=== PATIENT | male | born 1965 | race African-American/Black ===

== ENCOUNTER 2020-08-22 21:23 | Inpatient (IN) | payer SELFPAY, OTHER ==
[~2020-08-22] VITALS: Ht 180.3 cm; Wt 117.5 kg
--- NOTE | 2020-08-22 21:40 | NUR ---
BIB C/O SOB X 1 WEEK WITH SWOLLEN TESTICLES AND BLE EDEMA PT TO BED 1, AAOX4, O2 88% RA, PLACED ON 2L NC. +HYPERTENSIVE, -DIZZINESS/N/V/D, GOWNED, PLACED ON MONITOR, PENDING ER PROVIDER BUZZ
--- NOTE | 2020-08-22 22:15 | NUR ---
COVID ANTIGEN SENT
[2020-08-22 22:27] LABS: BASOPHILS % (AUTO) 0.7 % (0.0-2.0); EOSINOPHILS % (AUTO) 2.2 % (0.0-6.0); HEMATOCRIT 51 % (39-51); HEMOGLOBIN 15.3 g/dL (13.5-17.5); LYMPHOCYTES # (AUTO) 0.8 /CMM (0.8-4.8); MEAN CORPUSCULAR HGB CONC 30 g/dl (31.0-36.0); MEAN CORPUSCULAR VOLUME 97 fL (80-96); MONOCYTES # (AUTO) 0.9 /CMM (0.1-1.30); MONOCYTES % (AUTO) 12.5 % (2.0-12.0); NEUTROPHILS # (AUTO) 5.4 /CMM (1.8-8.9); NEUTROPHILS % (AUTO) 73.6 % (43.0-81.0); PLATELET COUNT (AUTO) 156 /CMM (150-450); RED BLOOD CELL COUNT(AUTO) 5.21 MIL/uL (4.5-6.0); WHITE BLOOD COUNT (AUTO) 7.4 K/uL (4.3-11.0)
[2020-08-22 22:44] LABS: CALCIUM, SERUM 9.3 mg/dL (8.5-10.1); CARBON DIOXIDE 24 mmol/L (21-32); CHLORIDE 105 mmol/L (98-107); CREATININE 1.5 mg/dL (0.6-1.3); GLUCOSE 118 mg/dL (74-106); POTASSIUM 4.5 mmol/L (3.5-5.1); SODIUM SERUM 140 mmol/L (136-145); UREA NITROGEN, BLOOD 26 mg/dL (7-18)
[2020-08-22 23:10] LABS: ALBUMIN 2.5 g/dL (3.4-5.0); ALKALINE PHOSPHATASE 206 U/L (46-116); ASPARTATE AMINOTRANSFERASE 22 U/L (15-37); B-TYPE NATRIURETIC PEPTIDE 4949 PG/ML (0-125); BILIRUBIN,TOTAL 0.9 mg/dL (0.2-1.0); TOTAL PROTEIN, SERUM 8.3 g/dL (6.4-8.2)
[2020-08-22 23:29] LABS: ALANINE AMINOTRANSFERASE < 6 U/L (12-78)
[2020-08-22] MEDS ORDERED: PIPERACILLIN /TAZOBACTAM 3.375 G in IV D5W 50 ML IV ONE (23:30)
[2020-08-22] MEDS ORDERED: VANCOMYCIN 1 GM in IV D5W 250 ML IV ONE (23:30)
[2020-08-22] MEDS ORDERED: PIPERACILLIN /TAZOBACTAM 3.375 G VIAL IV ONE (23:40)
[2020-08-22] MEDS ORDERED: VANCOMYCIN 1 GM VIAL ONE (23:40)
--- NOTE | 2020-08-23 00:23 | NUR ---
DR. DENNISON PAGED PER ER ORDER.
[2020-08-23] MEDS ORDERED: FUROSEMIDE 40 MG/4 ML VIAL IV ONE (01:00)
[2020-08-23] MEDS ORDERED: ZOLPIDEM TARTRATE 5 MG TABLET PO PRN (06:30)
[2020-08-23] MEDS ORDERED: Z GUARD REMEDY 2 OZ OINT TP PRN (06:30)
[2020-08-23] MEDS ORDERED: MAG HYDROX/AL HYDROX/SIMETH 30 ML UDC PO PRN (06:30)
[2020-08-23] MEDS ORDERED: ONDANSETRON HCL/PF 4 MG/2 ML VIAL IVP PRN (06:30)
[2020-08-23] MEDS ORDERED: MAGNESIUM HYDROXIDE 30 ML UDC PO PRN (06:30)
[2020-08-23] MEDS ORDERED: FUROSEMIDE 40 MG/4 ML VIAL ONE (07:00)
[2020-08-23] MEDS: FUROSEMIDE 40 MG/4 ML VIAL IV SCH ×3 (07:04→17:49)
--- NOTE | 2020-08-23 07:34 | NUR ---
REPORT GIVEN TO MONICA FOR DREW
--- NOTE | 2020-08-23 07:35 | NUR ---
REPORT RECEIVED FROM DARRION GARCIA FOR DREW. PATIENT IN BED AWAKE, AAO x 4. HOOKED TO MONITOR. NOTED ELEVATED BP. WILL CONTINUE TO MONITOR ACCORDINGLY
[2020-08-23] MEDS ORDERED: ENOXAPARIN SODIUM 40 MG/0.4 ML DISP.SYRIN SQ SCH (07:38)
[2020-08-23] MEDS ORDERED: CEFEPIME 2 GM in IV D5W 100 ML IV SCH (08:00)
--- NOTE | 2020-08-23 08:27 | NUR ---
TECHNICAL SPECIALIST CYTOGENETICS AT BEDSIDE FOR ECHOCARDIOGRAM
--- NOTE | 2020-08-23 08:31 | NUR ---
IN HOME TUTOR AT BEDSIDE FOR TROPONIN BLOOD DRAW
--- NOTE | 2020-08-23 08:54 | NUR ---
PATIENT REFUSED BLOOD DRAW.
--- NOTE | 2020-08-23 09:00 | NUR ---
LASIX 40MG/4ML IVP GIVEN BY PAD MAKING MACHINE OPERATOR NURSE
--- NOTE | 2020-08-23 09:01 | NUR ---
REACH TRUCK OPERATOR AT BEDSIDE FOR GENNARO
[2020-08-23] MEDS ORDERED: LISI-603 PO (09:08)
[2020-08-23] MEDS ORDERED: METF-440 PO (09:08)
--- NOTE | 2020-08-23 09:26 | NUR ---
BREAKFAST TRAY PROVIDED. TOLERATED PO WELL
[2020-08-23] MEDS ORDERED: DEXTROSE 50%-WATER 50 ML DISP.SYRIN IV PRN (11:30)
[2020-08-23] MEDS ORDERED: VANCOMYCIN 1 GM in IV D5W 250 ML IV SCH (12:00)
[2020-08-23] MEDS ORDERED: HYDROCODONE/APAP 5/325MG TABLET ONE (13:44)
[2020-08-23] MEDS: HYDROCODONE/APAP 5/325MG TABLET PO PRN (13:46)
--- NOTE | 2020-08-23 14:02 | NUR ---
LUNCH TRAY PROVIDED. TOLERATED PO WELL.
--- NOTE | 2020-08-23 15:19 | NUR ---
COVID 19 PCR SWAB DONE AND SENT TO LAB.
[2020-08-23] MEDS: AMLODIPINE BESYLATE 5 MG TABLET PO SCH (15:52)
--- NOTE | 2020-08-23 17:03 | NUR ---
DINNER TRAY PROVIDED. TOLERATING PO WELL.
[2020-08-23] MEDS: BLOOD SUGAR DIAGNOSTIC 1 EACH STRIP IN SCH ×2 (18:19→22:00)
--- NOTE | 2020-08-23 19:42 | NUR ---
REPORT GIVEN TO AURORA GARCIA FOR DREW
[2020-08-23] MEDS ORDERED: ENOXAPARIN SODIUM 100 MG/ML DISP.SYRIN SQ SCH (21:00)
[2020-08-23] MEDS ORDERED: ENOXAPARIN SODIUM 100 MG/ML DISP.SYRIN SQ ONE (21:09)
[2020-08-24] VITALS (26 sets, daily range): BP systolic 104–163; BP diastolic 51–132
--- NOTE | 2020-08-24 03:19 | NUR ---
PATIENT IS SLEEPING. EASILY AROUSABLE. CALL LIGHT WITHIN REACH. PATIENT'S BED IS AT THE LOWEST POSITION. SIDE RAILS ARE UP FOR SAFETY. PATIENT IS GIVEN WARM BLANKET FOR COMFORT. PATIENT IS BREATHING EVENLY AND UNLABORED ON ROOM N/C. PATIENT IS CONNECTED TO THE MONITOR.
[2020-08-24 05:10] LABS: BASOPHILS % (AUTO) 0.6 % (0.0-2.0); EOSINOPHILS % (AUTO) 2.7 % (0.0-6.0); HEMATOCRIT 46 % (39-51); HEMOGLOBIN 14.3 g/dL (13.5-17.5); LYMPHOCYTES # (AUTO) 0.6 /CMM (0.8-4.8); LYMPHOCYTES % (AUTO) 9.1 % (20.0-44.0); MEAN CORPUSCULAR HGB CONC 31 g/dl (31.0-36.0); MEAN CORPUSCULAR VOLUME 95 fL (80-96); MONOCYTES # (AUTO) 0.8 /CMM (0.1-1.30); MONOCYTES % (AUTO) 12.2 % (2.0-12.0); NEUTROPHILS # (AUTO) 4.7 /CMM (1.8-8.9); NEUTROPHILS % (AUTO) 75.4 % (43.0-81.0); PLATELET COUNT (AUTO) 180 /CMM (150-450); RED BLOOD CELL COUNT(AUTO) 4.78 MIL/uL (4.5-6.0); WHITE BLOOD COUNT (AUTO) 6.2 K/uL (4.3-11.0)
--- NOTE | 2020-08-24 05:19 | NUR ---
RT AT BEDSIDE FOR EKG
[2020-08-24 05:38] LABS: CALCIUM, SERUM 9.2 mg/dL (8.5-10.1); CREATININE 1.9 mg/dL (0.6-1.3); MAGNESIUM 2.5 mg/dL (1.8-2.4); PHOSPHORUS 5.5 mg/dL (2.5-4.9); POTASSIUM 5.3 mmol/L (3.5-5.1)
[2020-08-24] MEDS ORDERED: HYDROCODONE/APAP 5/325MG TABLET ONE (05:58)
[2020-08-24] MEDS ORDERED: ONDANSETRON HCL/PF 4 MG/2 ML VIAL ONE (05:58)
[2020-08-24] MEDS: HYDROCODONE/APAP 5/325MG TABLET PO PRN (06:06)
--- NOTE | 2020-08-24 06:55 | NUR ---
NOTED O2 SAT 80% 6L NC. PT PLACED ON 8L SIMPLE MASK, TOLERATING WELL. O2 SAT NOW 97%
[2020-08-24] MEDS ORDERED: FUROSEMIDE 40 MG/4 ML VIAL ONE (07:15)
--- NOTE | 2020-08-24 07:20 | NUR ---
PER ER MD, GIVE 40MG LASIX IVP NOW.
[2020-08-24] MEDS ORDERED: FUROSEMIDE 40 MG/4 ML VIAL IV SCH (07:30)
--- NOTE | 2020-08-24 07:47 | NUR ---
REPORT GIVEN TO GABY JUAREZ FOR DREW.
[2020-08-24] MEDS: AMLODIPINE BESYLATE 5 MG TABLET PO SCH (09:00)
--- NOTE | 2020-08-24 09:36 | NUR ---
PATIENT UNRESPONSIVE TO STERNAL RUB, PINPOINT SIZED PUPIL. PULSE AT 36 BPM. GABY WILCOX POWER PLANT OPERATIONS MANAGER VERBALLY ORDERED ATROPINE IVP 1MG/10ML AMPULE. CARRIED OUT.
--- NOTE | 2020-08-24 09:40 | NUR ---
PATIENT INTUBATED. NOT ABLE TO TAKE PO MEDICATION
--- NOTE | 2020-08-24 09:42 | NUR ---
[facility] CALLED EMS DRIVER PAGED.
--- NOTE | 2020-08-24 09:43 | NUR ---
DR HUMPHRIES, RT, RN AT BEDSIDE FOR INTUBATION.
[2020-08-24] MEDS ORDERED: PROPOFOL 100 ML ONE ×2 (09:46→12:01)
[2020-08-24] MEDS: FUROSEMIDE 40 MG/4 ML VIAL IV SCH ×2 (10:00→16:08)
--- NOTE | 2020-08-24 10:09 | NUR ---
ESMER SERVICE OFFICER AT BEDSIDE
[2020-08-24 10:23] LABS: ABG BASE EXCESS -4.6 mmol/L; ABG OXYGEN SATURATION 93.3 % (92.0-98.5); ABG PCO2 89.4 mmHg (35.0-45.0); ABG PH 7.104 (7.350-7.450); ABG PO2 71.8 mmHg (75.0-100.0); AaDO2 184.1 mmHg; COHb 1.5 % (0.5-1.5); MetHb 0.4 % (0.0-1.5); O2Hb 91.5 % (94.0-97.0); SITE, ABG Right Radial; VENT MODE, BG AC 16 600 50% +5
[2020-08-24] MEDS: ASPIRIN 325 MG TABLET PO SCH (10:30)
[2020-08-24] MEDS ORDERED: SODIUM POLYSTYRENE SULFONATE 15 G/60 ML BOTTLE PO ONE (10:30)
--- NOTE | 2020-08-24 10:38 | NUR ---
RT AT BEDSIDE. NEW SETTINGS FOR VENT: 60% 650 29
[2020-08-24] MEDS: BLOOD SUGAR DIAGNOSTIC 1 EACH STRIP IN SCH ×4 (11:14→22:53)
[2020-08-24] MEDS ORDERED: VANCOMYCIN 1.25 GM in IV D5W 250 ML IV SCH (12:00)
[2020-08-24] MEDS: ENOXAPARIN SODIUM 100 MG/ML DISP.SYRIN SQ SCH (12:39)
--- NOTE | 2020-08-24 13:00 | NUR ---
received pt from ER, s/p respiratory failure, sedated on Diprivan at 40mcg, SR, SB, intubated, sat well, R hand and BL foot non pitting edema noted, f/c in place, v/s table, no pain, pt cleaned, changed and repositioned.
[2020-08-24 13:12] LABS: ABG BASE EXCESS 1.5 mmol/L; ABG OXYGEN SATURATION 97.1 % (92.0-98.5); ABG PCO2 45.7 mmHg (35.0-45.0); ABG PH 7.389 (7.350-7.450); ABG PO2 85.2 mmHg (75.0-100.0); AaDO2 292.3 mmHg; COHb 0.8 % (0.5-1.5); MetHb 0.2 % (0.0-1.5); O2Hb 96.1 % (94.0-97.0); SITE, ABG Right Radial; VENT MODE, BG AC 24 650 60% +0
--- NOTE | 2020-08-24 13:21 | NUR ---
REPORT GIVEN TO YOSEF GARCIA OF ICU
[2020-08-24] MEDS: IPRATROPIUM NEB FS 0.5 MG/2.5 ML AMPUL.NEB NEB SCH ×3 (13:30→19:42)
--- NOTE | 2020-08-24 13:37 | NUR ---
TRANSFERRED TO ICU WITH RT AND OIL PIT ATTENDANT VIA ACLS PROTOCOL
[2020-08-24] MEDS ORDERED: PROPOFOL 200 MG/20 ML VIAL IV ONE (14:32)
[2020-08-24] MEDS: ZOSYN IVPB 3.375 G in IV D5W 50ml IV SCH ×2 (15:31→17:22)
[2020-08-24] MEDS: PROPOFOL 100 ML IV PRN ×3 (16:23→22:30)
--- NOTE | 2020-08-24 16:28 | NUR ---
pt is resting in the bed, sedated on Diprivan at 40mcg, sat well on 60% fi02, v/s stable, no pain, pt cleaned, changed and repositioned.
[2020-08-24] MEDS ORDERED: ATROPINE SULFATE 1 MG/10 ML DISP.SYRIN IV ONE (19:09)
[2020-08-24] MEDS ORDERED: EPINEPHRINE (1:10,000) SYRINGE 1 MG/10 ML DISP.SYRIN IVP ONE (19:09)
--- NOTE | 2020-08-24 19:51 | NUR ---
RN/ICU-RECEIVED PT. FROM [facility] RADHA RODRÍGUEZ. ON THE VENT PER ETT, ON AC MODE, FIO2- 50%. SATS.-100%. EKG SB HR-57/MIN. SEDATED ON DIPRIVAN DRIP AT 40 MCG/ KG/ MIN. NO ROSARIO . W/ DOMINIQUE. SOFT WRIST RESTRAINTS ON PER PROTOCOL.AFEBRILE. PT. IS A FULL CODE.
--- NOTE | 2020-08-24 22:29 | NUR ---
RN/ICU-ACCUCHECK DONE 57MG/DL. WILL RECHECK
[2020-08-25] VITALS (40 sets, daily range): BP systolic 119–222; BP diastolic 58–127
[2020-08-25] MEDS: ZOSYN IVPB 3.375 G in IV D5W 50ml IV SCH ×4 (00:39→17:33)
[2020-08-25] MEDS: IPRATROPIUM NEB FS 0.5 MG/2.5 ML AMPUL.NEB NEB SCH ×4 (01:58→19:56)
[2020-08-25] MEDS: PROPOFOL 100 ML IV PRN (02:16)
[2020-08-25] MEDS: HYDROCODONE/APAP 5/325MG TABLET PO PRN (03:35)
[2020-08-25 06:00] LABS: BASOPHILS % (AUTO) 0.5 % (0.0-2.0); HEMATOCRIT 43 % (39-51); HEMOGLOBIN 13.5 g/dL (13.5-17.5); LYMPHOCYTES # (AUTO) 0.7 /CMM (0.8-4.8); LYMPHOCYTES % (AUTO) 11.1 % (20.0-44.0); MEAN CORPUSCULAR HGB CONC 32 g/dl (31.0-36.0); MEAN CORPUSCULAR VOLUME 92 fL (80-96); MONOCYTES # (AUTO) 0.9 /CMM (0.1-1.30); MONOCYTES % (AUTO) 13.8 % (2.0-12.0); NEUTROPHILS # (AUTO) 4.5 /CMM (1.8-8.9); NEUTROPHILS % (AUTO) 72.6 % (43.0-81.0); PLATELET COUNT (AUTO) 175 /CMM (150-450); RED BLOOD CELL COUNT(AUTO) 4.62 MIL/uL (4.5-6.0); WHITE BLOOD COUNT (AUTO) 6.2 K/uL (4.3-11.0)
[2020-08-25 06:10] LABS: CALCIUM, SERUM 8.5 mg/dL (8.5-10.1); CREATININE 2.5 mg/dL (0.6-1.3); MAGNESIUM 2.3 mg/dL (1.8-2.4); PHOSPHORUS 3.3 mg/dL (2.5-4.9); POTASSIUM 4.8 mmol/L (3.5-5.1)
[2020-08-25] MEDS: BLOOD SUGAR DIAGNOSTIC 1 EACH STRIP IN SCH ×4 (07:30→22:01)
--- NOTE | 2020-08-25 07:30 | NUR ---
RN NOTES PATIENT REMAINE INTUBATED. NO ACUTE RESPIRATORY DISTRESS. AFEBRILE. CONTINUE ON SEDATION TIRATED ORDERED. SB ON TELE MONITOR. IV SITE INTACT AND PATENT IV ATB TOLERATED WELL. ACCUCHECK ORDERED. KEPT PT CLEAN AND DRY. ENDORSED CONTINUITY OF CARE TO AM NURSE.
[2020-08-25] MEDS ORDERED: DC PROPOFOL WHEN EXTUBATED XX PRN (08:00)
--- NOTE | 2020-08-25 08:00 | NUR ---
received pt from night shirt, sedated on diprivan at 40mcg, SB, intubated, sat well, NG clamped, f/c ok output, v/s stable, no pain, pt turned and repositioned, pt is on SIMV mode now tolerating well.
[2020-08-25] MEDS: ASPIRIN 325 MG TABLET PO SCH (08:53)
[2020-08-25] MEDS: AMLODIPINE BESYLATE 5 MG TABLET PO SCH (08:53)
[2020-08-25] MEDS: FUROSEMIDE 40 MG/4 ML VIAL IV SCH ×2 (08:53→17:31)
[2020-08-25] MEDS: ENOXAPARIN SODIUM 100 MG/ML DISP.SYRIN SQ SCH (08:54)
--- NOTE | 2020-08-25 09:28 | NUR ---
pt is successfully extubated, alert, follows commands, sat well, v/s stable, no pain.
[2020-08-25] MEDS: VANCOMYCIN 1.25 GM in IV D5W 250 ML IV SCH (10:19)
[2020-08-25 12:42] LABS: ABG BASE EXCESS 1.4 mmol/L; ABG OXYGEN SATURATION 98.1 % (92.0-98.5); ABG PCO2 40.2 mmHg (35.0-45.0); ABG PH 7.425 (7.350-7.450); ABG PO2 101.1 mmHg (75.0-100.0); AaDO2 137.9 mmHg; COHb 1.5 % (0.5-1.5); MetHb 0.3 % (0.0-1.5); O2Hb 96.3 % (94.0-97.0); PEEP,BG 5 cm H2O; SITE, ABG Right Radial; VT, ABG 650 mL
--- NOTE | 2020-08-25 16:58 | NUR ---
pt is resting in the bed, alert, confused at times, SB, on 4L 02 sat OK, v/s stable, no pain, pt cleaned and changed.
--- NOTE | 2020-08-25 20:00 | NUR ---
Received patient awake alert and oriented x2.Disoriented to time.Reoriented. Respiration even and unlabored. With O2 4L NC SPO2 97%.Encouraged cough and deep breathing exercises.SR per tele monitoring.Tolerating clear liquid.FC to gravity drainage.Independent with bed mobility.NS infusing at TKO via MICHAEL ML and site intact.Denies pain.Safety precaution maintained.Bed in lowest position, locked,side rails up and bed alarm on.Call light at bedside.Continue monitoring.
[2020-08-26] VITALS (21 sets, daily range): BP systolic 122–170; BP diastolic 62–89
[2020-08-26] MEDS: ZOSYN IVPB 3.375 G in IV D5W 50ml IV SCH ×5 (00:14→23:29)
[2020-08-26] MEDS: IPRATROPIUM NEB FS 0.5 MG/2.5 ML AMPUL.NEB NEB SCH ×4 (01:44→19:29)
[2020-08-26] MEDS: HYDROCODONE/APAP 5/325MG TABLET PO PRN ×4 (02:11→23:53)
--- NOTE | 2020-08-26 02:40 | NUR ---
Patient verbalized I have pain in my testicle noted scrotal swelling.PRN pain medicine administered with relief.
[2020-08-26] MEDS: VANCOMYCIN 1.25 GM in IV D5W 250 ML IV SCH (03:10)
[2020-08-26 05:13] LABS: BASOPHILS % (AUTO) 0.6 % (0.0-2.0); EOSINOPHILS % (AUTO) 2.1 % (0.0-6.0); HEMATOCRIT 42 % (39-51); HEMOGLOBIN 13.4 g/dL (13.5-17.5); LYMPHOCYTES # (AUTO) 0.8 /CMM (0.8-4.8); LYMPHOCYTES % (AUTO) 11.7 % (20.0-44.0); MEAN CORPUSCULAR HGB CONC 32 g/dl (31.0-36.0); MEAN CORPUSCULAR VOLUME 93 fL (80-96); MONOCYTES # (AUTO) 1.1 /CMM (0.1-1.30); MONOCYTES % (AUTO) 15.6 % (2.0-12.0); NEUTROPHILS # (AUTO) 4.8 /CMM (1.8-8.9); PLATELET COUNT (AUTO) 182 /CMM (150-450); RED BLOOD CELL COUNT(AUTO) 4.56 MIL/uL (4.5-6.0); WHITE BLOOD COUNT (AUTO) 6.8 K/uL (4.3-11.0)
[2020-08-26 05:24] LABS: CALCIUM, SERUM 8.3 mg/dL (8.5-10.1); CREATININE 2.8 mg/dL (0.6-1.3); MAGNESIUM 2.3 mg/dL (1.8-2.4); PHOSPHORUS 5.2 mg/dL (2.5-4.9); POTASSIUM 4.4 mmol/L (3.5-5.1)
[2020-08-26 06:38] LABS: BAND % (MANUAL) 1 % (0.0-5.0); EOSINOPHILS % (MANUAL) 3 % (0-4); LYMPHOCYTES % (MANUAL) 15 % (16-48); MONOCYTES % (MANUAL) 16 % (0-11.0); NEUTROPHILS % (MANUAL) 65 (42-76)
--- NOTE | 2020-08-26 07:30 | NUR ---
Patient resting in no acute distress.VSS remains stable.Bed bath rendered and complete linens changed.Due medications administered.All needs met.Report given to day shift RN for continuity of care.
[2020-08-26] MEDS: BLOOD SUGAR DIAGNOSTIC 1 EACH STRIP IN SCH ×4 (07:33→22:12)
[2020-08-26] MEDS: FUROSEMIDE 40 MG/4 ML VIAL IV SCH ×2 (08:43→18:22)
[2020-08-26] MEDS: ENOXAPARIN SODIUM 100 MG/ML DISP.SYRIN SQ SCH (08:43)
[2020-08-26] MEDS: AMLODIPINE BESYLATE 5 MG TABLET PO SCH (08:43)
[2020-08-26] MEDS: ASPIRIN 325 MG TABLET PO SCH (08:43)
[2020-08-26] MEDS: ACETAMINOPHEN 325 MG TABLET PO PRN (12:05)
[2020-08-26] MEDS: hydrALAZINE HCL 10 MG TABLET PO SCH ×2 (12:05→21:16)
--- NOTE | 2020-08-26 13:22 | NUR ---
RN NOTE Received patient in am, A/Ox2/ On 4LPM of O2 via NC, tolerated, satting 94-96%. Salmeron cath intact, monitored strictly for I&O, on Lasix. Still noted with generalized edema. MICHAEL midline intact. S/E by Dr. Medina, with order to advance diet to [place] diabetic diet and may transfer to Tele. Made cardio MD aware with episode of HR down to 39 and patient had [place] in am, will continue to monitor. Made nurse sup aware re: the transfer order. Patient aware for the POC. Awaiting Tele bed. Tolerated diet at lunch time.
--- NOTE | 2020-08-26 15:49 | NUR ---
RN NOTE Report given to Yang BACA. Placed on 2LPm of O2 via NC, sat 98%. A/Ox3, aware for the POC. Kept clean, warm and dry. Needs attended. VSS. Transferred via bed using ACLS protocol.
--- NOTE | 2020-08-26 15:56 | NUR ---
[facility] SPECIALIST NOTES RECEIVED PT FROM METER TECHNICIAN LILLIE VIA BED, PT IS AWAKE, ALERT AND ORIENTED, NO COMPLAINT OF PAIN, RESPIRATIONS NORMAL, ON O2 AT 2LPM VIA NASAL CANULA, WITH O2 SAT OF 98%, ROOM SET UP ORIENTATION PROVIDED TO PT, VERBALIZED UNDERSTANDING, VS STABLE, PT WATCHING TV.
--- NOTE | 2020-08-26 19:45 | NUR ---
FARM EQUIPMENT ENGINEER NOTES RECEIVED ON BED A/O X2,BREATHING REGULAR,NOT IN ANY FORM DISTRESS,O2 IN USED AT 4L/NC WITH HUMIDIFIER,SB-42 ON TELE MONITOR.ARCHULETA CATH IN PLACE DRAINING YELLOWISH OUTPUT.DVT PUMP IN USED BOTH LEGS FOR PROPHYLAXIS AND ON LOVENOX SQ.CALL LIGHT IN REACH,NEEDS ANTICIPATED.
--- NOTE | 2020-08-26 22:30 | NUR ---
FLATBED TRUCK DRIVER NOTES ACCU-CHECK BLOOD SUGAR CHECK 114,NO INSULIN COVERAGE.
[2020-08-27] VITALS: BP 178/83
--- NOTE | 2020-08-27 01:00 | NUR ---
RICE DRIER OPERATOR NOTES FAIRLY RESTED AT NIGHT,NO EPISODE OF SOB NOTED.ARCHULETA IN PLACE DRAINS WELL,EMPTIED 1750ML URINE OUTPUT.IN NO ACUTE DISTRESSWILL ENDORSE TO DAY NURSE FOR DREW.
[2020-08-27] MEDS: hydrALAZINE HCL 25 MG TABLET PO PRN (01:12)
[2020-08-27 01:23] VITALS: BP 178/83
[2020-08-27] MEDS: IPRATROPIUM NEB FS 0.5 MG/2.5 ML AMPUL.NEB NEB SCH ×4 (01:38→19:34)
[2020-08-27 04:00] VITALS: BP 144/74
[2020-08-27] MEDS: hydrALAZINE HCL 10 MG TABLET PO SCH ×3 (05:18→21:10)
[2020-08-27] MEDS: ZOSYN IVPB 3.375 G in IV D5W 50ml IV SCH ×4 (05:18→23:37)
[2020-08-27] MEDS: BLOOD SUGAR DIAGNOSTIC 1 EACH STRIP IN SCH ×4 (05:20→22:31)
[2020-08-27 06:08] LABS: BASOPHILS % (AUTO) 0.8 % (0.0-2.0); EOSINOPHILS % (AUTO) 3.5 % (0.0-6.0); HEMATOCRIT 43 % (39-51); HEMOGLOBIN 13.5 g/dL (13.5-17.5); LYMPHOCYTES # (AUTO) 0.7 /CMM (0.8-4.8); LYMPHOCYTES % (AUTO) 11.5 % (20.0-44.0); MEAN CORPUSCULAR HGB CONC 31 g/dl (31.0-36.0); MEAN CORPUSCULAR VOLUME 94 fL (80-96); MONOCYTES # (AUTO) 0.9 /CMM (0.1-1.30); MONOCYTES % (AUTO) 15.2 % (2.0-12.0); NEUTROPHILS # (AUTO) 4.2 /CMM (1.8-8.9); PLATELET COUNT (AUTO) 165 /CMM (150-450); RED BLOOD CELL COUNT(AUTO) 4.59 MIL/uL (4.5-6.0)
[2020-08-27 06:16] LABS: CALCIUM, SERUM 8.3 mg/dL (8.5-10.1); CREATININE 2.9 mg/dL (0.6-1.3); MAGNESIUM 2.4 mg/dL (1.8-2.4); POTASSIUM 5.1 mmol/L (3.5-5.1)
[2020-08-27 08:00] VITALS: BP 141/82
--- NOTE | 2020-08-27 08:00 | NUR ---
RN Opening note Received patient in bed, AO x 2-3 able to responds all stimuli, Pt does no appears pain or distress. Skin is warm to touch keep clean/dry intact IV site, respiratory even and unlabored with oxygen at 4LPM via n/c. Kept locked bed with elevated HOB for aspiration precaution and ensure airway and lowest bed foe safety. Call light within reach, will continue to monitor.
[2020-08-27 08:47] LABS: EOSINOPHILS % (MANUAL) 2 % (0-4); LYMPHOCYTES % (MANUAL) 9 % (16-48); MONOCYTES % (MANUAL) 16 % (0-11.0); NEUTROPHILS % (MANUAL) 73 (42-76)
[2020-08-27] MEDS: HYDROCODONE/APAP 5/325MG TABLET PO PRN ×2 (09:44→18:27)
[2020-08-27] MEDS: AMLODIPINE BESYLATE 5 MG TABLET PO SCH (09:46)
[2020-08-27] MEDS: ENOXAPARIN SODIUM 100 MG/ML DISP.SYRIN SQ SCH (09:47)
[2020-08-27] MEDS: FUROSEMIDE 40 MG/4 ML VIAL IV SCH ×2 (09:47→17:06)
[2020-08-27] MEDS: ASPIRIN EC 81 MG TABLET.DR PO SCH (09:47)
[2020-08-27] MEDS ORDERED: BUMETANIDE INJ 4 MG in IV D5W 24 ML IV ONE (10:00)
--- NOTE | 2020-08-27 14:24 | NUR ---
Called pharmacy x 3 regarding Bumex at 9 am did not received yet.
[2020-08-27 16:00] VITALS: BP 152/64
--- NOTE | 2020-08-27 18:48 | NUR ---
RN Closing note Patient in bed finished meal, does no appears pain or discomfort. Respiratory even and unlabored withoxygen at 4Ls via n/c O2sat 97%. Skin is warm to touch keep clean/dry, intact IV site. Kept locked bed with elevated HOB for ensure airway and aspiration precaution and lowest bed for safety. Call light within reach will endorse night warehouse selector.
--- NOTE | 2020-08-27 19:36 | NUR ---
RN OPENING NOTES PATIENT RECEIVED RESTING IN BED A/O X 3. ON 4L OF O2 WITH BREATHING EVEN AND UNLABORED, NO SOB NOTED. NO SIGNS OF ACUTE DISTRESS. NO COMPLAINTS OF PAIN OR DISCOMFORT AT THE MOMENT. ARCHULETA NOTED AND IN PLACE. MICHAEL MIDLINE AND IV LOCATED ON HAND PATENT AND INTACT. SAFETY PRECAUTIONS IN PLACE WITH BED IN LOWEST POSITION, CALL LIGHT WITHIN REACH, BREAKS ON, SIDE RAILS UP.
[2020-08-27 20:00] VITALS: BP 192/82
[2020-08-28] VITALS: BP 173/86
[2020-08-28] MEDS: IPRATROPIUM NEB FS 0.5 MG/2.5 ML AMPUL.NEB NEB SCH ×4 (01:42→19:32)
[2020-08-28] MEDS: hydrALAZINE HCL 25 MG TABLET PO PRN (02:03)
--- NOTE | 2020-08-28 03:14 | NUR ---
PATIENT BLOOD PRESSURE 173/86 HR 58. NO COMPLAINTS OF DIZZINESS. NO SIGNS OF ACUTE DISTRESS. PRN HYDRALAZINE 25M PRN ADMINISTERED.
[2020-08-28 04:00] VITALS: BP 167/84
[2020-08-28] MEDS: hydrALAZINE HCL 10 MG TABLET PO SCH ×3 (05:25→21:00)
[2020-08-28] MEDS: ZOSYN IVPB 3.375 G in IV D5W 50ml IV SCH ×4 (05:25→23:10)
[2020-08-28 06:46] LABS: CALCIUM, SERUM 8.4 mg/dL (8.5-10.1); CREATININE 3.5 mg/dL (0.6-1.3); POTASSIUM 4.8 mmol/L (3.5-5.1)
[2020-08-28] MEDS: BLOOD SUGAR DIAGNOSTIC 1 EACH STRIP IN SCH ×4 (07:27→21:21)
--- NOTE | 2020-08-28 07:35 | NUR ---
CATTLE ALLEY WORKER OPENING NOTE PATIENT IN BED RESTING COMFORTABLY. PATIENT IS IN NO ACUTE DISTRESS. NO SOB NOTED. PATIENT BREATHING IS EVEN AND UNLABORED. NO COMPLAINT OF PAIN OR DISCOMFORT AT THIS TIME. PATIENT IS ON VALVE ASSEMBLER READING SB 55. PATIENT BED ALARM IS ON. SAFETY PRECAUTIONS ARE IN PLACE. PATIENT BED IS LOCKED AND IN LOWEST POSITION. CALL LIGHT WITHIN REACH. WILL CONTINUE TO MONITOR.
--- NOTE | 2020-08-28 07:44 | NUR ---
RN OPENING NOTES PATIENT RESTING IN BED A/O X 3. ON 3L OF O2 WITH BREATHING EVEN AND UNLABORED, NO SOB NOTED. NO SIGNS OF ACUTE DISTRESS. NO COMPLAINTS OF PAIN OR DISCOMFORT AT THE MOMENT. ARCHULETA NOTED AND IN PLACE. MICHAEL MIDLINE AND IV LOCATED ON HAND PATENT AND INTACT. SAFETY PRECAUTIONS IN PLACE WITH BED IN LOWEST POSITION, CALL LIGHT WITHIN REACH, BREAKS ON, SIDE RAILS UP. ALL NEEDS ATTENDED TO THROUGHOUT THE NIGHT. PATIENT KEPT CLEAN AND DRY. WILL ENDORSE TO ONCOMING SHIFT ABOUT DREW.
[2020-08-28] MEDS: HYDROCODONE/APAP 5/325MG TABLET PO PRN ×3 (07:58→22:32)
[2020-08-28 08:00] VITALS: BP 157/97
[2020-08-28] MEDS: AMLODIPINE BESYLATE 5 MG TABLET PO SCH (08:34)
[2020-08-28] MEDS: ASPIRIN EC 81 MG TABLET.DR PO SCH (08:35)
[2020-08-28] MEDS: FUROSEMIDE 40 MG/4 ML VIAL IV SCH ×2 (08:35→16:22)
[2020-08-28] MEDS: ENOXAPARIN SODIUM 100 MG/ML DISP.SYRIN SQ SCH (08:36)
[2020-08-28 12:00] VITALS: BP 157/95
[2020-08-28 16:00] VITALS: BP 150/68
[2020-08-28] MEDS: METOLAZONE 2.5 MG TABLET PO SCH (18:14)
[2020-08-28] MEDS ORDERED: BUMETANIDE INJ 4 MG in IV D5W 24 ML IV ONE (18:30)
--- NOTE | 2020-08-28 18:55 | NUR ---
DISPLAY MANAGER CLOSING NOTES PATIENT IS IN BED RESTING COMFORTABLY. PATIENT IS IN NO ACUTE DISTRESS. PATIENT IS ON INFERTILITY MEDICAL ASSISTANT READING SR PAC 62. PATIENT IS ON NC ON 3L. PATIENT KEPT CLEAN DRY, AND COMFORTABLE THROUGHOUT THE SHIFT. NO FACIAL GRIMACING OR SIGNS OF PAIN PRESENT. BED ALARM IS ON. CALL LIGHT WITHIN REACH. BED IS IN THE LOWEST POSITION. ENDORSE TO OUTSIDE SALES REPRESENTATIVE NURSE FOR DREW.
[2020-08-28 19:50] VITALS: BP 128/70
[2020-08-28] MEDS ORDERED: ZOLPIDEM TARTRATE 5 MG TABLET PO ONE (21:00)
--- NOTE | 2020-08-28 21:00 | NUR ---
MS TELE OPENING NOTES: RECEIVED PATIENT ON BED, AWAKE, WITH O2 INHALATION VIA NC AT 3LPM, WITH MIDLINE ON MICHAEL WITH BUMEX DRIP ONGOING AT 5ML/HR. VITAL SIGNS ARE WNL. COMPLAINED OF PAIN ON SCROTAL AREA. WILL ADMINISTER ORDERED MEDICATION, WILL CHECK BLOOD GLUCOSE LEVELS. SAFETY AND FALL PRECAUTIONS OBSERVED. BED ALARM ON. ARCHULETA CATH IN PLACE. WILL CONTINUE TO MONITOR PATIENT.
[2020-08-29 00:05] VITALS: BP 167/84
[2020-08-29] MEDS: hydrALAZINE HCL 25 MG TABLET PO PRN (01:08)
[2020-08-29] MEDS: IPRATROPIUM NEB FS 0.5 MG/2.5 ML AMPUL.NEB NEB SCH ×4 (01:32→19:39)
[2020-08-29 04:15] VITALS: BP 165/88
[2020-08-29] MEDS: hydrALAZINE HCL 10 MG TABLET PO SCH ×3 (04:17→21:10)
--- NOTE | 2020-08-29 05:54 | NUR ---
CLOSING NOTES: PATIENT IN THE ROOM, RESTING COMFORTABLY. O2 INHALATION CONTINUED. BLOOD GLUCOSE LEVELS MONITORING CONTINUED. ADMINISTERED ORDERED MEDICATIONS. BP MONITORED.DR WILLS MADE AWARE OF PATIENT'S BP AROUND 0515 AM- 180/87 HR-67-HE FURTHER ORDERED HYDRALAZINE 25 MG PO ONE TIME DOSE- NOTED AND CARRIED OUT. SAFETY AND FALL PRECAUTIONS OBSERVED. BED ALARM KEPT ON. ATTENDED TO ALL PATIENT'S NEEDS. WILL ENDORSE PATIENT TO DAY SHIFT NURSE.
[2020-08-29] MEDS ORDERED: hydrALAZINE HCL 25 MG TABLET PO ONE (06:00)
[2020-08-29] MEDS: ZOSYN IVPB 3.375 G in IV D5W 50ml IV SCH ×3 (06:02→17:49)
[2020-08-29] MEDS: BLOOD SUGAR DIAGNOSTIC 1 EACH STRIP IN SCH ×4 (06:37→21:16)
[2020-08-29 06:50] LABS: BASOPHILS # (AUTO) 0.1 /CMM (0.0-0.2); BASOPHILS % (AUTO) 0.7 % (0.0-2.0); EOSINOPHILS % (AUTO) 1.9 % (0.0-6.0); HEMATOCRIT 41 % (39-51); HEMOGLOBIN 12.6 g/dL (13.5-17.5); LYMPHOCYTES # (AUTO) 0.5 /CMM (0.8-4.8); LYMPHOCYTES % (AUTO) 6.5 % (20.0-44.0); MEAN CORPUSCULAR HGB CONC 31 g/dl (31.0-36.0); MEAN CORPUSCULAR VOLUME 93 fL (80-96); MONOCYTES # (AUTO) 1.1 /CMM (0.1-1.30); MONOCYTES % (AUTO) 14.8 % (2.0-12.0); NEUTROPHILS # (AUTO) 5.8 /CMM (1.8-8.9); NEUTROPHILS % (AUTO) 76.1 % (43.0-81.0); PLATELET COUNT (AUTO) 151 /CMM (150-450); RED BLOOD CELL COUNT(AUTO) 4.37 MIL/uL (4.5-6.0); WHITE BLOOD COUNT (AUTO) 7.6 K/uL (4.3-11.0)
[2020-08-29 07:08] LABS: CALCIUM, SERUM 8.5 mg/dL (8.5-10.1); CREATININE 3.8 mg/dL (0.6-1.3); MAGNESIUM 2.4 mg/dL (1.8-2.4); PHOSPHORUS 5.9 mg/dL (2.5-4.9); POTASSIUM 4.6 mmol/L (3.5-5.1)
[2020-08-29 07:44] LABS: BILIRUBIN,URINE SMALL (NEGATIVE); COLOR,URINE DARK YELLOW (YELLOW); LEUKOCYTE ESTERASE ,URINE TRACE (NEGATIVE); NITRITE, URINE NEGATIVE (NEGATIVE); PROTEIN,URINE 100 mg/dl (NEGATIVE); UGLUCOSE NEGATIVE (NEGATIVE); UROBILINOGEN,URINE 0.2 EU/dL (0.2)
[2020-08-29 08:00] VITALS: BP 162/78
--- NOTE | 2020-08-29 08:00 | NUR ---
RN NOTES RECEIVED PATIENT ON BED, AWAKE, ORIENTED X3 WITH OXYGEN VIA NC AT 3LPM, WITH MIDLINE ON MICHAEL. NO PAIN OR DISCOMFORT VISIBLE OR REPORTED AT THIS TIME. PT IS ON BED REST. SAFETY AND FALL PRECAUTIONS OBSERVED. BED ALARM ON. CALL LIGHT WITHIN REACH. ARCHULETA CATH IN PLACE. WILL CONTINUE TO MONITOR PATIENT.
[2020-08-29] MEDS: ASPIRIN EC 81 MG TABLET.DR PO SCH (08:12)
[2020-08-29] MEDS: AMLODIPINE BESYLATE 5 MG TABLET PO SCH (08:12)
[2020-08-29] MEDS: METOLAZONE 2.5 MG TABLET PO SCH (08:13)
[2020-08-29] MEDS: ENOXAPARIN SODIUM 100 MG/ML DISP.SYRIN SQ SCH (08:19)
[2020-08-29 08:31] LABS: BACTERIA,URINE Moderate /HPF (None Seen); SQUAMOUS EPITHELIAL CELL,UR Rare /HPF (None Seen)
[2020-08-29 08:32] LABS: RBC,URINE 51-80 /HPF (0-2); URINE AMORPHOUS URATE Many /HPF (None Seen)
[2020-08-29 08:33] LABS: WBC,URINE 0-3 /HPF (0-3)
[2020-08-29 09:09] LABS: CREATININE, URINE 166.5 MG/DL (30.0-125.0); URINE TOTAL PROTEIN 217.7 mg/dL (0-11.9)
[2020-08-29 10:05] LABS: EOSINOPHIL,URINE None Seen
[2020-08-29 12:00] VITALS: BP 163/80
[2020-08-29] MEDS: INSULIN REGULAR, HUMAN 100 UNIT/ML 3 ML VIAL SQ PRN (14:20)
[2020-08-29 16:00] VITALS: BP 141/99
--- NOTE | 2020-08-29 16:26 | NUR ---
PT REFUSED TO EAT BREAKFAST AND LUNCH SAYING HE JUST WANTS TO GO HOME.OFFERED FLUIDS AND SNACKS BUT INSISTS TO REFUSE.
--- NOTE | 2020-08-29 19:18 | NUR ---
RN NOTES RECEIVED PATIENT ON BED, AWAKE, ORIENTED X3 WITH OXYGEN VIA NC AT 3LPM, WITH MIDLINE ON MICHAEL NO REDNESS SWELLING NOTED AT SITE. NO PAIN OR DISCOMFORT VISIBLE OR REPORTED AT THIS TIME. PT IS ON BED REST. SAFETY AND FALL PRECAUTIONS OBSERVED. BED ALARM ON. CALL LIGHT WITHIN REACH. ARCHULETA CATH IN PLACE. WILL CONTINUE TO MONITOR PATIENT.
[2020-08-29 20:00] VITALS: BP 179/81
--- NOTE | 2020-08-29 20:16 | NUR ---
RN OPENING NOTES PATIENT RECEIVED RESTING IN BED A/O X 3. ON 5L OF O2 WITH BREATHING EVEN AND UNLABORED, NO SOB NOTED. NO SIGNS OF ACUTE DISTRESS. NO COMPLAINTS OF PAIN OR DISCOMFORT AT THE MOMENT. MICHAEL MIDLINE PATENT AND INTACT. ARCHULETA NOTED AND IN PLACE. SAFETY PRECAUTIONS IN PLACE WITH BED IN LOWEST POSITION, CALL LIGHT WITHIN REACH, BREAKS ON, SIDE RAILS UP.
--- NOTE | 2020-08-29 21:30 | NUR ---
PATIENT DROPPED SCHEDULED HYDRALZINE, PULLED ANOTHER FROM PYS.
[2020-08-30] VITALS: BP 158/96
[2020-08-30] MEDS: ZOSYN IVPB 3.375 G in IV D5W 50ml IV SCH ×5 (00:24→23:27)
[2020-08-30] MEDS: HYDROCODONE/APAP 5/325MG TABLET PO PRN ×4 (00:48→20:10)
[2020-08-30] MEDS: IPRATROPIUM NEB FS 0.5 MG/2.5 ML AMPUL.NEB NEB SCH ×4 (01:26→20:02)
[2020-08-30 04:00] VITALS: BP 182/86
[2020-08-30] MEDS: hydrALAZINE HCL 10 MG TABLET PO SCH ×3 (05:29→20:09)
[2020-08-30] MEDS: BLOOD SUGAR DIAGNOSTIC 1 EACH STRIP IN SCH ×4 (06:35→22:11)
[2020-08-30 07:07] LABS: COMPLEMENT C3, SERUM 139 mg/dL (82-167); COMPLEMENT C4, SERUM 37 mg/dL (12-38)
--- NOTE | 2020-08-30 07:24 | NUR ---
RN CLOSING NOTES PATIENT RESTING IN BED A/O X 3. ON 4L OF O2 WITH BREATHING EVEN AND UNLABORED, NO SOB NOTED. NO SIGNS OF ACUTE DISTRESS. NO COMPLAINTS OF PAIN OR DISCOMFORT AT THE MOMENT. MICHAEL MIDLINE PATENT AND INTACT. ARCHULETA NOTED AND IN PLACE. SAFETY PRECAUTIONS IN PLACE WITH BED IN LOWEST POSITION, CALL LIGHT WITHIN REACH, BREAKS ON, SIDE RAILS UP. ALL NEEDS ATTENDED TO. PATIENT KEPT CLEAN AND DRY.WILL ENDORSE TO ONCOMING SHIFT ABOUT DREW.
--- NOTE | 2020-08-30 07:30 | NUR ---
TELE/RN OPENING NOTES RECEIVED PATIENT IN BED. A/O X3-4. AFEBRILE. IN NO APPARENT DISTRESS. ON 4L/MIN OF O2. WITH MICHAEL MIDLINE. SAFETY PRECAUTIONS APPLIED. BED IN LOWEST POSITION, LOCKED. SIDE RAILS UP X2. CALL LIGHT WITHIN REACH. WILL CONTINUE TO MONITOR.
[2020-08-30 08:00] VITALS: BP 181/74
[2020-08-30] MEDS: ASPIRIN EC 81 MG TABLET.DR PO SCH (08:33)
[2020-08-30] MEDS: ENOXAPARIN SODIUM 100 MG/ML DISP.SYRIN SQ SCH (08:34)
[2020-08-30 08:39] LABS: BASOPHILS # (AUTO) 0.1 /CMM (0.0-0.2); BASOPHILS % (AUTO) 0.6 % (0.0-2.0); EOSINOPHILS % (AUTO) 0.6 % (0.0-6.0); HEMATOCRIT 40 % (39-51); HEMOGLOBIN 12.7 g/dL (13.5-17.5); LYMPHOCYTES # (AUTO) 0.6 /CMM (0.8-4.8); LYMPHOCYTES % (AUTO) 5.4 % (20.0-44.0); MEAN CORPUSCULAR HGB CONC 32 g/dl (31.0-36.0); MEAN CORPUSCULAR VOLUME 91 fL (80-96); MONOCYTES # (AUTO) 1.8 /CMM (0.1-1.30); MONOCYTES % (AUTO) 17.9 % (2.0-12.0); NEUTROPHILS # (AUTO) 7.7 /CMM (1.8-8.9); NEUTROPHILS % (AUTO) 75.5 % (43.0-81.0); PLATELET COUNT (AUTO) 156 /CMM (150-450); RED BLOOD CELL COUNT(AUTO) 4.36 MIL/uL (4.5-6.0); WHITE BLOOD COUNT (AUTO) 10.2 K/uL (4.3-11.0)
[2020-08-30] MEDS: METOLAZONE 2.5 MG TABLET PO SCH (08:40)
[2020-08-30] MEDS: AMLODIPINE BESYLATE 5 MG TABLET PO SCH (08:40)
[2020-08-30 08:43] LABS: CALCIUM, SERUM 8.7 mg/dL (8.5-10.1); CREATININE 4.1 mg/dL (0.6-1.3); MAGNESIUM 2.4 mg/dL (1.8-2.4); PHOSPHORUS 5.6 mg/dL (2.5-4.9); POTASSIUM 4.7 mmol/L (3.5-5.1)
[2020-08-30 09:36] LABS: LYMPHOCYTES % (MANUAL) 6 % (16-48); MONOCYTES % (MANUAL) 12 % (0-11.0); NEUTROPHILS % (MANUAL) 82 (42-76)
[2020-08-30 11:19] LABS: *ANA ANTI-CENTROMERE B AB <0.2 AI (0.0-0.9); *ANA ANTI-DNA(DS) AB, QN <1 IU/mL (0-9); *ANA ANTI-JO-1 <0.2 AI (0.0-0.9); *ANA ANTICHROMATIN ANTIBODY 0.2 AI (0.0-0.9); *ANA RNP ANTIBODIES <0.2 AI (0.0-0.9); *ANA SJOGREN'S ANTI-SS-A 0.2 AI (0.0-0.9); *ANA SJOGREN'S ANTI-SS-B <0.2 AI (0.0-0.9); *ANAANTI-SCLERODERMA-70 AB <0.2 AI (0.0-0.9); *ANASMITH AB <0.2 AI (0.0-0.9)
[2020-08-30 12:00] VITALS: BP 175/99
[2020-08-30 16:00] VITALS: BP 104/60
--- NOTE | 2020-08-30 17:20 | NUR ---
TELE/RN NOTES PATIENT STATED HE WAS JUST TRYING TO BLOW HIS NOSE THEN BLOOD CAME OUT. BLOODY MUCUS WAS NOTED.
--- NOTE | 2020-08-30 18:48 | NUR ---
TELE/RN CLOSING NOTES PATIENT IN BED, ON SEMI FOWLERS POSITION. AFEBRILE. IN PAIN 10/10, FELT IN SCROTAL AREA. INSTRUCTED PATIENT THAT NORCO IS EVERY 4 HOURS AND CAN'T BE GIVEN UNTIL 2005. ON NC, O2 4L/MIN. LEFT UA MIDLINE #18, RIGHT HAND #22 G. IN NO APPARENT DISTRESS. SAFETY PRECAUTIONS APPLIED. BED IN LOWEST POSITION, LOCKED. SIDE RAILS UP X3. CALL LIGHT WITHIN REACH. WILL CONTINUE TO MONITOR.
--- NOTE | 2020-08-30 19:30 | NUR ---
RN OPENING NOTES Received patient on bed resting. With complaints of pain on scrotum, pt only wanted [place] for pain, awaiting for due time at this time. On O2 via NC @ 5LPM, saturating well. Kept on bed clean, dry and comfortable. On fall and aspiration precautions. Will continue to monitor accordingly.
[2020-08-30 20:00] VITALS: BP 180/90
[2020-08-31] MEDS: HYDROCODONE/APAP 5/325MG TABLET PO PRN ×3 (00:49→21:21)
[2020-08-31] MEDS: IPRATROPIUM NEB FS 0.5 MG/2.5 ML AMPUL.NEB NEB SCH ×4 (01:23→19:40)
[2020-08-31 04:00] VITALS: BP 181/90
[2020-08-31] MEDS: hydrALAZINE HCL 10 MG TABLET PO SCH ×3 (05:12→21:00)
[2020-08-31] MEDS: ZOSYN IVPB 3.375 G in IV D5W 50ml IV SCH ×3 (05:12→18:14)
[2020-08-31 06:14] LABS: ALBUMIN 1.9 g/dL (3.4-5.0); BILIRUBIN,TOTAL 1.9 mg/dL (0.2-1.0); CALCIUM, SERUM 9.1 mg/dL (8.5-10.1); CREATININE 4.2 mg/dL (0.6-1.3); MAGNESIUM 2.6 mg/dL (1.8-2.4); POTASSIUM 4.3 mmol/L (3.5-5.1); TOTAL PROTEIN, SERUM 7.3 g/dL (6.4-8.2)
[2020-08-31 06:24] LABS: BASOPHILS % (AUTO) 0.3 % (0.0-2.0); EOSINOPHILS % (AUTO) 0.4 % (0.0-6.0); HEMATOCRIT 38 % (39-51); LYMPHOCYTES # (AUTO) 0.6 /CMM (0.8-4.8); LYMPHOCYTES % (AUTO) 4.7 % (20.0-44.0); MEAN CORPUSCULAR HGB CONC 32 g/dl (31.0-36.0); MEAN CORPUSCULAR VOLUME 90 fL (80-96); MONOCYTES # (AUTO) 1.4 /CMM (0.1-1.30); MONOCYTES % (AUTO) 12.1 % (2.0-12.0); NEUTROPHILS # (AUTO) 9.8 /CMM (1.8-8.9); NEUTROPHILS % (AUTO) 82.5 % (43.0-81.0); PLATELET COUNT (AUTO) 187 /CMM (150-450); WHITE BLOOD COUNT (AUTO) 11.9 K/uL (4.3-11.0)
--- NOTE | 2020-08-31 06:58 | NUR ---
RN CLOSING NOTES Pt asleep on bed, no new complaints made. All nursing needs attended, due meds given as ordered. Medicated for pain, noted effective. Kept on bed clean, dry and comfortable. Will continue to monitor accordingly.
[2020-08-31] MEDS: BLOOD SUGAR DIAGNOSTIC 1 EACH STRIP IN SCH ×4 (07:12→23:47)
--- NOTE | 2020-08-31 07:35 | NUR ---
GLOBAL RISK MANAGEMENT DIRECTOR OPENING NOTES RECEIVED PATIENT IN BED, AWAKE, A/O X3. PATIENT ON OXYGEN THERAPY AT 4 LMP VIA NASAL CANULA. NO COMPLAINS OF PAIN AT THIS TIME. SAFETY PRECAUTIONS IN PLACE; BED IN LOW POSITION AND LOCKED, RAILS UP X2, CALL LIGHT WITHIN REACH. WILL CONTINUE TO MONITOR PATIENT.
[2020-08-31 08:00] VITALS: BP 152/80
[2020-08-31] MEDS: ASPIRIN EC 81 MG TABLET.DR PO SCH (08:42)
[2020-08-31] MEDS: AMLODIPINE BESYLATE 5 MG TABLET PO SCH (08:43)
[2020-08-31] MEDS: METOLAZONE 2.5 MG TABLET PO SCH (08:43)
[2020-08-31] MEDS: ENOXAPARIN SODIUM 100 MG/ML DISP.SYRIN SQ SCH (08:44)
[2020-08-31] MEDS: hydrALAZINE HCL 25 MG TABLET PO SCH ×2 (13:00→21:18)
--- NOTE | 2020-08-31 14:25 | NUR ---
CONSTRUCTION RECRUITER NOTES PATIENT COMPLAINING OF SCROTUM PAIN AND REQUESTING PRN PAIN MEDICATION. PRN PAIN MEDICATION ADMINISTERED.
--- NOTE | 2020-08-31 16:58 | NUR ---
LEAD SIMULATION MODELING ENGINEER NOTES PATIENT HAD 2 1300 APRESOLINE MEDICATIONS; ONE FOR 10 MG AND ONE FOR 25 MG. CALLED PHARMACY TO CONFIRM. LATER, PER PHARMACY, APRESOLINE 25 MG MEDICATION IS A PRN MEDICATION AND 10 MG OK TO GIVE SCHEDULED.
--- NOTE | 2020-08-31 19:02 | NUR ---
MIXED CROP FARMER CLOSING NOTES PATIENT REMAINS IN BED, AWAKE, A/O X3. PATIENT ON OXYGEN THERAPY AT 4 LMP VIA NASAL CANULA; BREATHING EVEN AND UNLABORED. PAIN CONTROLLED WITH PRN MEDICATION PER MD ORDER. ALL NEEDS ATTENDED THROUGHOUT THE DAY. SAFETY PRECAUTIONS IN PLACE; BED IN LOW POSITION AND LOCKED, RAILS UP X2, CALL LIGHT WITHIN REACH. WILL ENDORSE TO MANAGER MSW NURSE.
--- NOTE | 2020-09-01 00:20 | NUR ---
TELE/RN PATIENT IS SLEEPING AT THIS TIME, APPEAR COMFORTABLE, NO SIGNS OF DISTRESS NOTED, CALL LIGHT IN REACH, WILL CONTINUE TO MONITOR.
[2020-09-01] MEDS: ZOSYN IVPB 3.375 G in IV D5W 50ml IV SCH ×5 (00:24→23:38)
[2020-09-01] MEDS: IPRATROPIUM NEB FS 0.5 MG/2.5 ML AMPUL.NEB NEB SCH ×4 (00:55→19:35)
[2020-09-01] MEDS: hydrALAZINE HCL 25 MG TABLET PO SCH ×3 (05:04→20:29)
[2020-09-01 06:48] LABS: BASOPHILS # (AUTO) 0.1 /CMM (0.0-0.2); BASOPHILS % (AUTO) 0.6 % (0.0-2.0); EOSINOPHILS % (AUTO) 2.8 % (0.0-6.0); HEMATOCRIT 34 % (39-51); LYMPHOCYTES # (AUTO) 0.5 /CMM (0.8-4.8); LYMPHOCYTES % (AUTO) 4.6 % (20.0-44.0); MEAN CORPUSCULAR HGB CONC 32 g/dl (31.0-36.0); MEAN CORPUSCULAR VOLUME 91 fL (80-96); MONOCYTES # (AUTO) 1.5 /CMM (0.1-1.30); MONOCYTES % (AUTO) 14.6 % (2.0-12.0); NEUTROPHILS # (AUTO) 7.8 /CMM (1.8-8.9); NEUTROPHILS % (AUTO) 77.4 % (43.0-81.0); PLATELET COUNT (AUTO) 195 /CMM (150-450); RED BLOOD CELL COUNT(AUTO) 3.76 MIL/uL (4.5-6.0); WHITE BLOOD COUNT (AUTO) 10.1 K/uL (4.3-11.0)
--- NOTE | 2020-09-01 07:13 | NUR ---
TELE/RN PATIENT WAS INSISTING TO GO TO THE BATHROOM, TOLD PATIENT TO WAIT FOR THE PHYSICAL THERAPIST TO EVALUATE HIM IF HE CAN SAFELY WALK, BUT PATIENT WAS UPSET AND INSISTED TO GET OUT OF BED. BUT WAS VERY WEAK AND ASSISTED HIM TO A KNEELING POSITION ON THE FLOOR. I ASKED FOR HELP TO BRING HIM BACK TO BED. WHEN HE WAS ALREADY IN BED, PATIENT WAS APOLOGIZED,
[2020-09-01 07:21] LABS: ALBUMIN 1.9 g/dL (3.4-5.0); BILIRUBIN,TOTAL 1.7 mg/dL (0.2-1.0); CALCIUM, SERUM 8.8 mg/dL (8.5-10.1); CREATININE 4.1 mg/dL (0.6-1.3); MAGNESIUM 2.6 mg/dL (1.8-2.4); PHOSPHORUS 5.5 mg/dL (2.5-4.9)
--- NOTE | 2020-09-01 07:35 | NUR ---
MORTUARY BEAUTICIAN OPENING NOTES RECEIVED PT WITH NIGHT NURSE IN PT ROOM AND PT ON FLOOR KNEELING HOLDING HIS BSC. ASSISTED PT TOGETHER WITH OTHER STAFF TO BED. PT IS A/O X4. ABLE TO MAKE NEEDS KNOWN, DENIES PAIN OR ANY DISCOMFORTS AT THIS TIME. REMINDED PT NOT TO GET OUT OF BED AND USE CALL LIGHT FOR ANY ASSISTANCE, PT VERBALIZED UNDERSTANDING. ON 02 VIA N/C AT 4LPM, TOLERATING WELL WITH NO SOB NOTED. EXTERNAL MONITOR SHOWS NSR WITH HR ON THE 80'S, NO C/O CARDIAC DISTRESS VOICED AT THIS TIME. IV ACCESS ON RIGHT HAND G#20 INTACT AND PATENT. ARCHULETA IN PLACE DRAINING CLEAR SAFETY MEASURES IN PLACE: BED IN LOWEST LOCKED POSITION WITH SR UP X2, BED ALARM ON AND CALL LIGHT W/IN EASY REACH OF PT. WILL CONTINUE TO MONITOR PT.
[2020-09-01] MEDS: BLOOD SUGAR DIAGNOSTIC 1 EACH STRIP IN SCH ×4 (07:44→21:24)
[2020-09-01 08:00] VITALS: BP 176/102
[2020-09-01] MEDS: METOLAZONE 2.5 MG TABLET PO SCH (08:18)
[2020-09-01] MEDS: ASPIRIN EC 81 MG TABLET.DR PO SCH (08:19)
[2020-09-01] MEDS: hydrALAZINE HCL 25 MG TABLET PO PRN (08:19)
[2020-09-01] MEDS: AMLODIPINE BESYLATE 5 MG TABLET PO SCH (08:21)
[2020-09-01] MEDS: ENOXAPARIN SODIUM 100 MG/ML DISP.SYRIN SQ SCH (08:27)
[2020-09-01] MEDS: INSULIN REGULAR, HUMAN 100 UNIT/ML 3 ML VIAL SQ PRN ×2 (11:45→17:20)
[2020-09-01 12:00] VITALS: BP 140/76
[2020-09-01] MEDS: hydrALAZINE HCL 10 MG TABLET PO SCH (13:00)
[2020-09-01 16:00] VITALS: BP 138/74
--- NOTE | 2020-09-01 19:01 | NUR ---
FINANCIAL ADMINISTRATOR CLOSING NOTES PT IN BED AWAKE AND WATCHING TV AT THIS TIME. A/O X4. ABLE TO MAKE NEEDS KNOWN, REMINDED NOT TO GET OUT OF BED AND USE CALL LIGHT FOR ANY ASSISTANCE, PT VERBALIZED UNDERSTANDING. ON 02 VIA N/C AT 4LPM, TOLERATING WELL WITH NO SOB NOTED DURING SHIFT. EXTERNAL MONITOR SHOWS NSR WITH HR ON THE 70'S, NO C/O CARDIAC DISTRESS VOICED DURING THE DAY. IV ACCESS ON RIGHT HAND G#20 INTACT AND PATENT. ARCHULETA IN PLACE DRAINING CLEAR YELLOW URINE OUTPUT, ARCHULETA CARE DONE. ALL NEEDS AND CARE ATTENDED WELL. SAFETY MEASURES IN PLACE: BED IN LOWEST LOCKED POSITION WITH SR UP X2, BED ALARM ON AND CALL LIGHT W/IN EASY REACH OF PT. WILL ENDORSE TO LIME KILN OPERATOR NURSE FOR DREW.
[2020-09-01 20:00] VITALS: BP 151/100
[2020-09-01] MEDS: HYDROCODONE/APAP 5/325MG TABLET PO PRN (20:29)
[2020-09-01] MEDS: ACETAMINOPHEN 325 MG TABLET PO PRN (21:50)
[2020-09-02] VITALS: BP 146/69
[2020-09-02] MEDS: IPRATROPIUM NEB FS 0.5 MG/2.5 ML AMPUL.NEB NEB SCH ×4 (01:38→20:05)
[2020-09-02 04:00] VITALS: BP_SYST 121; BP_SYST 151; BP_DIAS 66
[2020-09-02] MEDS: hydrALAZINE HCL 25 MG TABLET PO SCH ×3 (04:43→21:06)
[2020-09-02] MEDS: ZOSYN IVPB 3.375 G in IV D5W 50ml IV SCH ×3 (04:43→17:40)
[2020-09-02] MEDS: HYDROCODONE/APAP 5/325MG TABLET PO PRN ×4 (04:47→22:55)
[2020-09-02] MEDS: BLOOD SUGAR DIAGNOSTIC 1 EACH STRIP IN SCH ×4 (06:32→22:03)
--- NOTE | 2020-09-02 06:42 | NUR ---
RN CLOSING NOTES Pt asleep, no complaints made at this time. Medicated for pain noted effective. BP under control. Blood sugar WNL. All due meds given as ordered. All nursing needs attended. Kept on bed clean, dry and comfortable. Endorsed.
[2020-09-02 07:00] LABS: HEMOGLOBIN 10.8 g/dL (13.5-17.5); RED BLOOD CELL COUNT(AUTO) 3.71 MIL/uL (4.5-6.0); WHITE BLOOD COUNT (AUTO) 9.6 K/uL (4.3-11.0)
[2020-09-02 07:01] LABS: BASOPHILS % (AUTO) 0.5 % (0.0-2.0); EOSINOPHILS % (AUTO) 2.9 % (0.0-6.0); HEMATOCRIT 33 % (39-51); LYMPHOCYTES # (AUTO) 0.4 /CMM (0.8-4.8); LYMPHOCYTES % (AUTO) 4.5 % (20.0-44.0); MEAN CORPUSCULAR HGB CONC 32 g/dl (31.0-36.0); MEAN CORPUSCULAR VOLUME 90 fL (80-96); MONOCYTES # (AUTO) 1.6 /CMM (0.1-1.30); MONOCYTES % (AUTO) 17.1 % (2.0-12.0); NEUTROPHILS # (AUTO) 7.2 /CMM (1.8-8.9); PLATELET COUNT (AUTO) 221 /CMM (150-450)
[2020-09-02 07:18] LABS: ALBUMIN 1.9 g/dL (3.4-5.0); BILIRUBIN,TOTAL 1.9 mg/dL (0.2-1.0); CALCIUM, SERUM 8.7 mg/dL (8.5-10.1); CREATININE 4.1 mg/dL (0.6-1.3); MAGNESIUM 2.6 mg/dL (1.8-2.4); PHOSPHORUS 5.2 mg/dL (2.5-4.9); POTASSIUM 3.9 mmol/L (3.5-5.1); TOTAL PROTEIN, SERUM 7.2 g/dL (6.4-8.2)
--- NOTE | 2020-09-02 07:30 | NUR ---
CALL CENTER CONSULTANT OPENING NOTES RECEIVED PT IN BED AWAKE, A/O X4. ABLE TO MAKE NEEDS KNOWN, DENIES PAIN OR ANY DISCOMFORTS AT THIS TIME. ON 02 VIA N/C AT 4LPM, TOLERATING WELL WITH NO SOB NOTED. EXTERNAL MONITOR SHOWS NSR WITH HR ON THE 70'S, NO C/O CARDIAC DISTRESS VOICED AT THIS TIME. IV ACCESS ON RIGHT HAND G#20 INTACT AND PATENT. ARCHULETA IN PLACE DRAINING CLEAR YELLOW URINE OUTPUT VIA GRAVITY. SAFETY MEASURES IN PLACE: BED IN LOWEST LOCKED POSITION WITH SR UP X2, BED ALARM ON AND CALL LIGHT W/IN EASY REACH OF PT. WILL CONTINUE TO MONITOR PT.
[2020-09-02 08:00] VITALS: BP 161/78
[2020-09-02] MEDS: ASPIRIN EC 81 MG TABLET.DR PO SCH (08:20)
[2020-09-02] MEDS: METOLAZONE 2.5 MG TABLET PO SCH (08:23)
[2020-09-02] MEDS: AMLODIPINE BESYLATE 5 MG TABLET PO SCH (08:23)
[2020-09-02] MEDS: ENOXAPARIN SODIUM 100 MG/ML DISP.SYRIN SQ SCH (08:24)
[2020-09-02 12:00] VITALS: BP 140/86
[2020-09-02] MEDS: INSULIN REGULAR, HUMAN 100 UNIT/ML 3 ML VIAL SQ PRN ×2 (12:17→17:25)
[2020-09-02 12:33] LABS: EOSINOPHILS % (MANUAL) 2 % (0-4); LYMPHOCYTES % (MANUAL) 6 % (16-48); MONOCYTES % (MANUAL) 15 % (0-11.0); NEUTROPHILS % (MANUAL) 77 (42-76)
[2020-09-02 16:05] VITALS: BP 155/84
--- NOTE | 2020-09-02 18:21 | NUR ---
HARDWARE SUPPLIES SALES REPRESENTATIVE CLOSING NOTES RECEIVED PT IN BED SLEEPING INTERMITTENTLY. A/O X4. ABLE TO MAKE NEEDS KNOWN, DENIES PAIN OR ANY DISCOMFORTS AT THIS TIME. ON 02 VIA N/C AT 2LPM, TOLERATING WELL WITH NO SOB NOTED. EXTERNAL MONITOR SHOWS NSR WITH HR ON THE 80-90'S, NO C/O CARDIAC DISTRESS VOICED AT THIS TIME. PATIENT PULLED OUT IV ON RIGHT HAND G#20 PULLED OUT WITH NO ACTIVE BLEEDING. MICHAEL IV INTACT AND PATENT. ARCHULETA IN PLACE DRAINING CLEAR YELLOW URINE OUTPUT VIA GRAVITY. SAFETY MEASURES IN PLACE: BED IN LOWEST LOCKED POSITION WITH SR UP X2, BED ALARM ON AND CALL LIGHT W/IN EASY REACH OF PT. WILL CONTINUE TO MONITOR PT.
--- NOTE | 2020-09-02 19:30 | NUR ---
MS RN OPENING NOTE: RECEIVED PT IN BED SLEEPING A/O X4. ABLE TO MAKE NEEDS KNOWN, DENIES PAIN OR ANY DISCOMFORTS AT THIS TIME. NO ACUTE DISTRESS. ON 02 VIA N/C AT 2LPM, TOLERATING WELL WITH NO SOB NOTED. MICHAEL IV INTACT AND PATENT. ARCHULETA IN PLACE DRAINING CLEAR YELLOW URINE OUTPUT VIA GRAVITY. BED IN LOWEST LOCKED POSITION WITH SR UP X2, BED ALARM ON AND CALL LIGHT W/IN EASY REACH OF PT. WILL CONTINUE TO MONITOR
[2020-09-02 20:37] VITALS: BP 157/76
--- NOTE | 2020-09-02 21:38 | NUR ---
MS RN NOTE: PT. C/O OF 5/10 SCROTUM PAIN. ADMINISTERED NORCO PO PRN ORDERED. WILL CONTINUE TO MONITOR.
--- NOTE | 2020-09-02 22:59 | NUR ---
RN NOTES PT. IS ASKING FOR SLEEPING PILL- MICHAEL INFANTE-ARCHIVIST POLITICAL HISTORY ORDERED, AMBIEN 5 MG PO PRN ORDER NOTED AND CARRIED OUT
[2020-09-02] MEDS: ZOLPIDEM TARTRATE 5 MG TABLET PO PRN (23:10)
[2020-09-03] MEDS: ZOSYN IVPB 3.375 G in IV D5W 50ml IV SCH ×4 (00:04→18:16)
[2020-09-03 00:10] VITALS: BP 160/76
[2020-09-03] MEDS: IPRATROPIUM NEB FS 0.5 MG/2.5 ML AMPUL.NEB NEB SCH ×4 (01:28→21:01)
[2020-09-03 04:10] VITALS: BP 154/78
[2020-09-03] MEDS: hydrALAZINE HCL 25 MG TABLET PO SCH ×3 (05:44→22:29)
[2020-09-03] MEDS: BLOOD SUGAR DIAGNOSTIC 1 EACH STRIP IN SCH ×4 (06:57→22:12)
--- NOTE | 2020-09-03 07:03 | NUR ---
MS CLOSING NOTE: PT. A/O X4. ABLE TO MAKE NEEDS KNOWN, DENIES PAIN OR ANY DISCOMFORTS AT THIS TIME. NO ACUTE DISTRESS. ON 02 VIA N/C AT 2LPM, TOLERATING WELL WITH NO SOB NOTED. MICHAEL IV INTACT AND PATENT. ALL NEEDS ATTENDED. KEPT CLEAN AND DRY. BED IN LOWEST LOCKED POSITION WITH SR UP X2, BED ALARM ON AND CALL LIGHT W/IN EASY REACH OF PT. WILL CONTINUE TO MONITOR. ARCHULETA CATH OUTPUT 200 ML. WILL ENDORSE TO DAYSHIFT NURSE
[2020-09-03 08:00] VITALS: BP 156/86
[2020-09-03 08:18] LABS: BASOPHILS # (AUTO) 0.1 /CMM (0.0-0.2); BASOPHILS % (AUTO) 0.7 % (0.0-2.0); EOSINOPHILS % (AUTO) 1.1 % (0.0-6.0); HEMATOCRIT 33 % (39-51); HEMOGLOBIN 10.5 g/dL (13.5-17.5); LYMPHOCYTES # (AUTO) 0.4 /CMM (0.8-4.8); LYMPHOCYTES % (AUTO) 3.8 % (20.0-44.0); MEAN CORPUSCULAR HGB CONC 32 g/dl (31.0-36.0); MEAN CORPUSCULAR VOLUME 90 fL (80-96); MONOCYTES # (AUTO) 1.5 /CMM (0.1-1.30); MONOCYTES % (AUTO) 13.1 % (2.0-12.0); NEUTROPHILS # (AUTO) 9.2 /CMM (1.8-8.9); NEUTROPHILS % (AUTO) 81.3 % (43.0-81.0); PLATELET COUNT (AUTO) 242 /CMM (150-450); RED BLOOD CELL COUNT(AUTO) 3.67 MIL/uL (4.5-6.0); WHITE BLOOD COUNT (AUTO) 11.4 K/uL (4.3-11.0)
[2020-09-03] MEDS: ASPIRIN EC 81 MG TABLET.DR PO SCH (08:28)
[2020-09-03] MEDS: METOLAZONE 2.5 MG TABLET PO SCH (08:28)
[2020-09-03] MEDS: AMLODIPINE BESYLATE 5 MG TABLET PO SCH (08:40)
[2020-09-03] MEDS: ENOXAPARIN SODIUM 100 MG/ML DISP.SYRIN SQ SCH (08:41)
[2020-09-03 09:03] LABS: ALBUMIN 1.9 g/dL (3.4-5.0); BILIRUBIN,TOTAL 2.1 mg/dL (0.2-1.0); CALCIUM, SERUM 8.9 mg/dL (8.5-10.1); CREATININE 4.2 mg/dL (0.6-1.3); MAGNESIUM 2.5 mg/dL (1.8-2.4); PHOSPHORUS 5.2 mg/dL (2.5-4.9); TOTAL PROTEIN, SERUM 7.4 g/dL (6.4-8.2)
[2020-09-03] MEDS: FUROSEMIDE 40 MG/4 ML VIAL IV SCH (12:19)
[2020-09-03] MEDS: HYDROCODONE/APAP 5/325MG TABLET PO PRN ×2 (12:30→21:06)
[2020-09-03 16:00] VITALS: BP 151/70
--- NOTE | 2020-09-03 19:35 | NUR ---
NETWORKS COMPUTER CONSULTANT OPENING NOTES RECEIVED PATIENT IN BED ALERT AND ORIENTED X 2-3 WITH CONFUSION. VERBALLY RESPONSIVE AND ABLE TO FOLLOW DIRECTIONS. BREATHING REGULAR AND UNLABORED ON OXYGEN AT 4L/MIN VIA NASAL CANNULA. LEFT UPPER ARM MIDLINE INTACT AND PATENT, FLUSHING WELL. MAINTAINED ON CARDIAC MONITORING. ARCHULETA CATH INTACT DRAINING BLOODY URINE WITH MODERATE AMOUNT ON BAG. DENIES PAIN/DISCOMFORT AT THIS TIME. BED LOW AND LOCKED ON SEMI FOWLERS POSITION. CALL LIGHT IN REACH. WILL CONTINUE TO MONITOR.
--- NOTE | 2020-09-03 19:50 | NUR ---
RN CLOSING NOTES PATIENT IN BED RESTING COMFORTABLY, ALERT AND ORIENTED X 3-4. ON NASAL CANNULA, 3 LITERS TOLERATING WELL WITH NO RESPIRATORY DISTRESS PRESENT AT THIS TIME, WITH EVEN NON-LABORED BREATHING. ARCHULETA CATHETER IN PLACE. PATIENT PRESENTS WITH NO PAIN OF DISCOMFORT AT THIS TIME, MET ALL OF PATIENT'S NEEDS. SAFETY PRECAUTIONS IMPLEMENTED WITH BED LOCKED, BILATERAL SIDE RAILS UP, AND CALL LIGHT WITHIN EASY REACH. WILL ENDORSE PLAN OF CARE TO UPCOMING RN.
[2020-09-03 20:00] VITALS: BP 152/85
--- NOTE | 2020-09-03 21:00 | NUR ---
HYPERION ADMINISTRATOR NOTES PATIENT SCREAMS FOR HELP, RN CAME INSIDE THE ROOM AND NOTED PATIENT TRYING TO GET OUT OF BED AND SAYING HE WANTS TO GO HOME. HE'S CONFUSED AND SAYING SOMETHING ABOUT A SEMINAR. PATIENT HAD AN EPISODE OF FALL LAST TIME AND CAN'T AMBULATE ON HIS OWN. CHARGE NURSE AND SUPERINTENDENT BUILDING CAME TO HELP, BY THIS TIME PATIENT WAS ALREADY SITTING ON THE EDGE OF THE BED. REASSURE PATIENT AND EXPLAINED THAT HE'S CURRENTLY IN THE HOSPITAL BUT INSISTED THAT HE'S GOING HOME. CHARGE NURSE EXPLAINED THAT HE CAN GO HOME LONG THERE IS SOMEONE WHO CAN PICK HIM UP. ASKED PATIENT TO GO BACK TO BED BUT UNABLE TO MOVE INDEPENDENTLY. RN CALLED SECURITY GUARDS FOR ASSISTANCE, PATIENT WAS ABLE TO GO BACK TO BED AND SUPERINTENDENT BUILDING CLEANED HIM. REQUEST FOR PAIN MEDICATION GIVEN. BED ALARM ON. WILL CLOSELY MONITOR. FAMILY AWARE OF THE INCIDENTS.
[2020-09-04] VITALS: BP 150/98
[2020-09-04] MEDS: IPRATROPIUM NEB FS 0.5 MG/2.5 ML AMPUL.NEB NEB SCH ×4 (01:22→19:38)
[2020-09-04] MEDS: hydrALAZINE HCL 25 MG TABLET PO SCH ×3 (05:00→22:41)
--- NOTE | 2020-09-04 05:30 | NUR ---
HOG MAN NOTES REFUSED DUE HYDRALAZINE PER PATIENT " I DON'T KNOW WHAT YOU GUYS ARE GIVING ME, I HAVE TO REFUSED" RISK AND BENEFITS OF MEDICATIONS EXPLAINED X 3 BUT STILL CHOSES TO REFUSE. WILL CONTINUE TO MONITOR.
[2020-09-04 05:59] LABS: BASOPHILS # (AUTO) 0.1 /CMM (0.0-0.2); BASOPHILS % (AUTO) 0.4 % (0.0-2.0); EOSINOPHILS % (AUTO) 1.4 % (0.0-6.0); HEMATOCRIT 30 % (39-51); HEMOGLOBIN 9.6 g/dL (13.5-17.5); LYMPHOCYTES # (AUTO) 0.5 /CMM (0.8-4.8); LYMPHOCYTES % (AUTO) 3.9 % (20.0-44.0); MEAN CORPUSCULAR HGB CONC 32 g/dl (31.0-36.0); MEAN CORPUSCULAR VOLUME 90 fL (80-96); MONOCYTES # (AUTO) 1.7 /CMM (0.1-1.30); MONOCYTES % (AUTO) 12.9 % (2.0-12.0); NEUTROPHILS # (AUTO) 10.7 /CMM (1.8-8.9); NEUTROPHILS % (AUTO) 81.4 % (43.0-81.0); PLATELET COUNT (AUTO) 257 /CMM (150-450); RED BLOOD CELL COUNT(AUTO) 3.35 MIL/uL (4.5-6.0); WHITE BLOOD COUNT (AUTO) 13.1 K/uL (4.3-11.0)
[2020-09-04 06:17] LABS: ALBUMIN 1.9 g/dL (3.4-5.0); BILIRUBIN,TOTAL 1.9 mg/dL (0.2-1.0); CALCIUM, SERUM 8.9 mg/dL (8.5-10.1); CREATININE 4.5 mg/dL (0.6-1.3); MAGNESIUM 2.5 mg/dL (1.8-2.4); PHOSPHORUS 5.6 mg/dL (2.5-4.9); POTASSIUM 3.9 mmol/L (3.5-5.1); TOTAL PROTEIN, SERUM 7.4 g/dL (6.4-8.2)
[2020-09-04] MEDS: BLOOD SUGAR DIAGNOSTIC 1 EACH STRIP IN SCH ×4 (06:40→22:42)
[2020-09-04] MEDS: INSULIN REGULAR, HUMAN 100 UNIT/ML 3 ML VIAL SQ PRN ×3 (06:40→18:08)
--- NOTE | 2020-09-04 06:55 | NUR ---
ELEVATOR SERVICE TECHNICIAN CLOSING NOTES PATIENT IN BED, ALERT AND ORIENTED X 2-3 WITH EPISODES OF CONFUSION. AFEBRILE WITH NO S/S OF DISTRESS OBSERVED. WILL ENDORSE TO MORNING SHIFT FOR CONTINUITY OF CARE.
[2020-09-04] MEDS: HYDROCODONE/APAP 5/325MG TABLET PO PRN ×2 (07:15→08:59)
--- NOTE | 2020-09-04 07:25 | NUR ---
HAND SHAPER OPENING NOTES RECEIVED PT IN BED AWAKE, A/O X3-4. ABLE TO MAKE NEEDS KNOWN, AND RESTLESS. ON 02 VIA N/C AT 4LPM, TOLERATING WELL WITH NO SOB NOTED. EXTERNAL MONITOR SHOWS NSR WITH HR AT 80'S, NO C/O CARDIAC DISTRESS VOICED AT THIS TIME. IV MICHAEL MIDLINE G#18 INTACT AND PATENT. ARCHULETA CATHETER IN PLACE DRAINING CLEAR YELLOW URINE OUTPUT VIA GRAVITY. PATIENT COMPLAIN OF 7/10 PAIN ON SCROTUM, ADMINISTERED NORCO 5-325MG AT 0715. SAFETY MEASURES IN PLACE: BED IN LOWEST LOCKED POSITION WITH SR UP X2, BED ALARM ON AND CALL LIGHT W/IN EASY REACH OF PT. WILL CONTINUE TO MONITOR PT.
[2020-09-04 08:00] VITALS: BP 149/85
[2020-09-04] MEDS: ENOXAPARIN SODIUM 100 MG/ML DISP.SYRIN SQ SCH (08:46)
[2020-09-04] MEDS: AMLODIPINE BESYLATE 5 MG TABLET PO SCH (08:47)
[2020-09-04] MEDS: FUROSEMIDE 40 MG/4 ML VIAL IV SCH (08:47)
[2020-09-04] MEDS: ASPIRIN EC 81 MG TABLET.DR PO SCH (08:48)
[2020-09-04] MEDS: METOLAZONE 2.5 MG TABLET PO SCH (08:48)
[2020-09-04 12:00] VITALS: BP 149/96
--- NOTE | 2020-09-04 12:18 | NUR ---
ELEAZAR attempted to contact Uma Vora x [phone] [facility] [employer] regarding patient insurance status. ELEAZAR unable to speak with Uma, ELEAZAR left voicemail with this callback number.
[2020-09-04 16:00] VITALS: BP 120/78
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
--- NOTE | 2020-09-04 16:57 | NUR ---
12:20pm SW conducted chart review to familiarize with the patient. Plan: SW to call Umalynn Vora x [phone] [facility] [employer] regarding patient insurance status. SW remains available for all needs regarding this patient.
--- NOTE | 2020-09-04 16:58 | NUR ---
1:00pm SW spoke with Marty Magdaleno regarding this patient. Marty Magdaleno reported that patient had fallen overnight and needed assistance of several nurses to pick him up as patient cannot control lower extremities. Marty Magdaleno informed this SW that nurses approached the patient to assist the patient to return to bed. Marty Magdaleno also informed this SW that security was called for assistance as patient became agitated. Marty Magdaleno informed this SW that patients physicians preference would be for patient to return home with assistance and oxygen at home for patients safety. Marty Magdaleno also informed this SW that PT recommended snf facility placement for additional assistance. Marty Magdaleno asked this SW to follow-up with Case Management team regarding a safe and proper discharge. Plan: SW to follow-up with Case Management Team.
--- NOTE | 2020-09-04 16:58 | NUR ---
1:15pm SW spoke with Airplane Tube Builder Kelvin and SW informed JT Warren regarding current situation. JT Warren will follow-up with patient regarding a safe and proper discharge as patient is currently on five liters of oxygen and does not have someone to assist in care at home. Patient also does not have medical insurance at this time. Plan: SW to follow-up with Airplane Tube Builder Kelvin regarding plan and SW to follow-up with Uma Vora [phone] [facility] [employer] to assist patient with filing for medical insurance.
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
--- NOTE | 2020-09-04 16:59 | NUR ---
ELEAZAR spoke with blind escort Nino, this SW requesting a psychiatrist consult based on assessment findings. Per blind escort Nino, consult will be placed in [facility]. ELEAZAR remains available for all needs regarding this patient.
--- NOTE | 2020-09-04 17:35 | NUR ---
RN NOTES PATIENT FOR PSYCH CONSULT BY DR LOPEZ FOR CONFUSION AND AGITATION. FACE SHEET FAXED TO [employer] AND RECEIVED CONFIRMATION.
--- NOTE | 2020-09-04 17:37 | NUR ---
RN NOTES PT SEEN AND EVALUATED BY DR MARCELO WITH ORDER TO DISCONTINUE ARCHULETA CATHETER. WILL CARRY OUT OERDER.
--- NOTE | 2020-09-04 18:02 | NUR ---
RN NOTES ARCHULETA CATHETER REMOVED WITH EASED, NO ACTIVE BLEEDING NOTED. 400ML OUTPUT NOTED. EDUCATED PT TO USE URINAL FOR VOIDING. WILL CONTINUE TO MONITOR.
--- NOTE | 2020-09-04 18:46 | NUR ---
PACK PULLER CLOSING NOTES PT IN BED SLEEPING, A/O X3 WITH EPISODES OF CONFUSION, RESTLESSNESS, AND AGITATION; ABLE TO MAKE NEEDS KNOWN. ON 02 VIA N/C AT 4LPM, TOLERATING WELL WITH NO SOB NOTED. EXTERNAL MONITOR SHOWS NSR WITH HR AT 80'S, NO C/O CARDIAC DISTRESS VOICED AT THIS TIME. IV MICHAEL MIDLINE G#18 INTACT AND PATENT. ARCHULETA CATHETER DISCONTINUED, NO ACTIVE BLEEDING NOTED. VOIDING VIA URINAL. SAFETY MEASURES IN PLACE: BED IN LOWEST LOCKED POSITION WITH SR UP X2, BED ALARM ON AND CALL LIGHT W/IN EASY REACH OF PT. WILL ENDORSE PLAN OF CARE TO ONCOMING NURSE.
--- NOTE | 2020-09-04 20:28 | NUR ---
MS/TELE/RN PATIENT IS AWAKE, ALERT, ORIENTED, COMFORTABLE, NO C/O PAIN, NO DISTRESS NOTED, CALL LIGHT IN REACH, FALL PRECAUTIONS PER PROTOCOL IMPLEMENTED, WILL MONITOR.
[2020-09-04 21:26] VITALS: BP 162/86
[2020-09-05] MEDS: IPRATROPIUM NEB FS 0.5 MG/2.5 ML AMPUL.NEB NEB SCH ×4 (01:00→19:34)
[2020-09-05 01:28] VITALS: BP 159/89
--- NOTE | 2020-09-05 02:21 | NUR ---
MS/TELE/RN PATIENT IS SLEEPING AT THIS TIME, APPEAR COMFORTABLE, NO SIGNS OF DISTRESS NOTED, CALL LIGHT IN REACH, WILL CONTINUE TO MONITOR.
[2020-09-05 05:10] VITALS: BP 153/92
[2020-09-05] MEDS: hydrALAZINE HCL 25 MG TABLET PO SCH ×3 (05:17→23:25)
[2020-09-05] MEDS: HYDROCODONE/APAP 5/325MG TABLET PO PRN ×2 (05:18→20:40)
--- NOTE | 2020-09-05 06:03 | NUR ---
MS/TELE/RN UNABLE TO GET WEIGHT, BED SCALE NOT WORKING. URINE OUTPUT 150 WITH 143 BLADDER SCAN. PATIENT IS AWAKE, SLEEPY, COMFORTABLE, NO DISTRESS NOTED, ALL NEEDS ATTENDED AT THIS TIME, WILL CONTINUE TO MONITOR.
[2020-09-05 06:08] LABS: BASOPHILS % (AUTO) 0.3 % (0.0-2.0); HEMATOCRIT 29 % (39-51); HEMOGLOBIN 9.3 g/dL (13.5-17.5); LYMPHOCYTES # (AUTO) 0.5 /CMM (0.8-4.8); LYMPHOCYTES % (AUTO) 4.1 % (20.0-44.0); MEAN CORPUSCULAR HGB CONC 32 g/dl (31.0-36.0); MEAN CORPUSCULAR VOLUME 91 fL (80-96); MONOCYTES # (AUTO) 1.6 /CMM (0.1-1.30); NEUTROPHILS # (AUTO) 10.1 /CMM (1.8-8.9); NEUTROPHILS % (AUTO) 80.6 % (43.0-81.0); PLATELET COUNT (AUTO) 276 /CMM (150-450); RED BLOOD CELL COUNT(AUTO) 3.22 MIL/uL (4.5-6.0); WHITE BLOOD COUNT (AUTO) 12.5 K/uL (4.3-11.0)
[2020-09-05 06:25] LABS: CALCIUM, SERUM 8.9 mg/dL (8.5-10.1); CREATININE 4.8 mg/dL (0.6-1.3); MAGNESIUM 2.7 mg/dL (1.8-2.4); PHOSPHORUS 6.2 mg/dL (2.5-4.9)
[2020-09-05] MEDS: BLOOD SUGAR DIAGNOSTIC 1 EACH STRIP IN SCH ×4 (06:35→23:25)
--- NOTE | 2020-09-05 07:44 | NUR ---
LAWN MOWER OPENING NOTES PT IN BED SLEEPING, A/O X3 ABLE TO MAKE NEEDS KNOWN. ON 02 VIA N/C AT 4LPM, TOLERATING WELL WITH NO SOB NOTED. EXTERNAL MONITOR SHOWS SR WITH ARRHYTHMIA AND 1ST DEGREE AV BLOCK IN HR AT THE 70'S. NO C/O CARDIAC DISTRESS VOICED AT THIS TIME. IV MICHAEL MIDLINE G#18 INTACT AND PATENT. SAFETY MEASURES IN PLACE: BED IN LOWEST LOCKED POSITION WITH SR UP X2, BED ALARM ON AND CALL LIGHT W/IN EASY REACH OF PT. WILL ENDORSE PLAN OF CARE TO ONCOMING NURSE.
[2020-09-05] MEDS: FUROSEMIDE 40 MG/4 ML VIAL IV SCH (08:45)
[2020-09-05] MEDS: METOLAZONE 2.5 MG TABLET PO SCH (08:45)
[2020-09-05] MEDS: AMLODIPINE BESYLATE 5 MG TABLET PO SCH (08:46)
[2020-09-05] MEDS: ENOXAPARIN SODIUM 100 MG/ML DISP.SYRIN SQ SCH (08:47)
[2020-09-05] MEDS: ASPIRIN EC 81 MG TABLET.DR PO SCH (08:48)
[2020-09-05] MEDS: INSULIN REGULAR, HUMAN 100 UNIT/ML 3 ML VIAL SQ PRN ×2 (11:48→16:57)
[2020-09-05 12:00] VITALS: BP 138/76
--- NOTE | 2020-09-05 15:41 | NUR ---
REPLANTER NOTES PHYSICAL THERAPIST VISITED PATIENT, PATIENT PLACED ON O2 5LPM VIA NC WHILE DOING ACTIVITY. PATIENT TOLERATED THERAPY. TRIED TO PLACE PATIENT ON OXYGEN AT 2-3L BUT PATIENT DID NOT TOLERATE; SPO2 DROPPED BELOW 90%. PATIENT PLACED BACK ON 4L; SPO2 AT 94%. WILL CONTINUE TO MONITOR .
[2020-09-05 16:00] VITALS: BP 121/69
--- NOTE | 2020-09-05 18:27 | NUR ---
QUANTITATIVE ANALYST MARKETING CLOSING NOTES PT IN BED SLEEPING, A/O X3 ABLE TO MAKE NEEDS KNOWN. ON 02 VIA N/C AT 4LPM, TOLERATING WELL WITH NO SOB NOTED. EXTERNAL MONITOR SHOWS SR WITH ARRHYTHMIA AND PAC IN HR AT THE 70'S. NO C/O CARDIAC DISTRESS VOICED AT THIS TIME. IV MICHAEL MIDLINE G#18 INTACT AND PATENT. SAFETY MEASURES IN PLACE: BED IN LOWEST LOCKED POSITION WITH SR UP X2, BED ALARM ON AND CALL LIGHT W/IN EASY REACH OF PT. WILL ENDORSE PLAN OF CARE TO ONCOMING NURSE.
--- NOTE | 2020-09-05 19:58 | NUR ---
MS/TELE/RN PATIENT IS AWAKE, ALERT, ORIENTED, WAS TALKING TO SOMEBODY ON THE PHONE, NO DISTRESS NOTED, DR. LOPEZ, PSYCHIATRIST, AT BEDSIDE, WILL MONITOR.
[2020-09-05 20:00] VITALS: BP 133/81
[2020-09-05] MEDS: ZOLPIDEM TARTRATE 5 MG TABLET PO PRN (23:24)
--- NOTE | 2020-09-06 00:52 | NUR ---
MS/TELE/RN PATIENT IS SLEEPING AT THIS TIME, APPEAR COMFORTABLE, NO DISTRESS NOTED, CALL LIGHT IN REACH, WILL CONTINUE TO MONITOR.
[2020-09-06] MEDS: IPRATROPIUM NEB FS 0.5 MG/2.5 ML AMPUL.NEB NEB SCH ×4 (00:58→21:01)
[2020-09-06 01:49] VITALS: BP 141/87
[2020-09-06] MEDS: hydrALAZINE HCL 25 MG TABLET PO SCH ×2 (05:26→13:55)
--- NOTE | 2020-09-06 06:05 | NUR ---
MS/TELE/RN PER PATIENT HE DID NOT URINATE YET, ATTEMPTED TO DO BLADDER SCAN BUT PATIENT REFUSED. PATIENT IS AWAKE, ALERT, ORIENTED, VERBALIZED THAT HE HAD A GOOD SLEEP, ALL NEEDS ATTENDED AT THIS TIME, WILL CONTINUE TO MONITOR.
[2020-09-06 06:28] LABS: BASOPHILS % (AUTO) 0.4 % (0.0-2.0); EOSINOPHILS % (AUTO) 2.6 % (0.0-6.0); HEMATOCRIT 29 % (39-51); HEMOGLOBIN 9.3 g/dL (13.5-17.5); LYMPHOCYTES # (AUTO) 0.6 /CMM (0.8-4.8); MEAN CORPUSCULAR HGB CONC 32 g/dl (31.0-36.0); MEAN CORPUSCULAR VOLUME 91 fL (80-96); MONOCYTES # (AUTO) 1.4 /CMM (0.1-1.30); MONOCYTES % (AUTO) 12.9 % (2.0-12.0); NEUTROPHILS # (AUTO) 8.8 /CMM (1.8-8.9); NEUTROPHILS % (AUTO) 79.1 % (43.0-81.0); PLATELET COUNT (AUTO) 306 /CMM (150-450); RED BLOOD CELL COUNT(AUTO) 3.23 MIL/uL (4.5-6.0); WHITE BLOOD COUNT (AUTO) 11.1 K/uL (4.3-11.0)
[2020-09-06] MEDS: BLOOD SUGAR DIAGNOSTIC 1 EACH STRIP IN SCH ×4 (06:43→23:33)
--- NOTE | 2020-09-06 07:02 | NUR ---
RN OPENING NOTES RECEIVED PT AWAKE AT THIS TIME.AOX4. NO SOB NOTED, NO S/S OF ANY ACUTE DISTRESS NOTED. NO C/O PAIN AT THIS TIME. PT ON EXTERNAL DIRECTOR MEDIA READING SR 76. RESPIRATIONS ARE EVEN AND UNLABORED. PT NOTED ON OXYGEN 4LPM VIA NC. MICHAEL MIDLINE, INTACT, PATENT AND FLUSHING WELL. ASPIRATION AND SAFETY PRECAUTION IN PLACE AND MAINTAINED AT ALL TIMES. BED IN LOWEST LOCKED POSITION, HOB ELEVATED, SIDE RAILS UP X 2, CALL LIGHT AND TABLE WITHIN REACH. WILL CONTINUE TO MONITOR
[2020-09-06 07:48] LABS: CALCIUM, SERUM 8.9 mg/dL (8.5-10.1); CREATININE 4.9 mg/dL (0.6-1.3)
[2020-09-06 08:00] VITALS: BP 146/67
[2020-09-06] MEDS: FUROSEMIDE 40 MG/4 ML VIAL IV SCH (08:49)
[2020-09-06] MEDS: AMLODIPINE BESYLATE 5 MG TABLET PO SCH (08:49)
[2020-09-06] MEDS: ASPIRIN EC 81 MG TABLET.DR PO SCH (08:49)
[2020-09-06] MEDS: HYDROCODONE/APAP 5/325MG TABLET PO PRN ×2 (10:54→23:33)
--- NOTE | 2020-09-06 11:00 | NUR ---
PT C/O OF ACHING SCROTUM/RIGHT LEG PAIN OF 5/10. PT NOTED WITH FACIAL GRIMACE AND MOANING. VS WNL. PER PT REQUEST NORCO 5-325MG PO Q4HR PRN ADMINISTERED AT THIS TIME PER ORDER. WILL CONTINUE TO MONITOR
[2020-09-06 11:15] VITALS: BP 158/90
[2020-09-06] MEDS: INSULIN REGULAR, HUMAN 100 UNIT/ML 3 ML VIAL SQ PRN (12:13)
[2020-09-06 16:00] VITALS: BP 146/77
--- NOTE | 2020-09-06 19:49 | NUR ---
RN CLOSING NOTES PT AWAKE IN BED AT THIS TIME. PT REMAINED STABLE THROUGHOUT SHIFT. ALL CARE, NEED, MEDICATIONS AND TREATMENT ADMINISTERED ANTICIPATED PER ORDER. PT KEPT CLEAN AND DRY. SAFETY PRECAUTION IN PLACE AND MAINTAINED AT ALL TIMES. BED IN LOWEST LOCKED POSITION, HOB ELEVATED, SIDE RAILS UP X 2, CALL LIGHT AND TABLE WITHIN REACH. WILL ENDORSE TO WARRANTY COORDINATOR NURSE FOR DREW
[2020-09-06 20:00] VITALS: BP 138/78
--- NOTE | 2020-09-06 23:46 | NUR ---
RN NOTES COPMPLAINED OF GENERALIZED PAIN- NORCO 1 TAB PO GIVEN ORDERED
[2020-09-07] VITALS: BP 154/86
[2020-09-07] MEDS: hydrALAZINE HCL 25 MG TABLET PO SCH ×4 (00:06→20:55)
[2020-09-07] MEDS: ZOLPIDEM TARTRATE 5 MG TABLET PO PRN ×2 (02:38→22:01)
[2020-09-07] MEDS: IPRATROPIUM NEB FS 0.5 MG/2.5 ML AMPUL.NEB NEB SCH ×4 (02:42→20:05)
[2020-09-07 04:00] VITALS: BP 146/73
--- NOTE | 2020-09-07 05:45 | NUR ---
RN NOTES PT. PULLED OUT HER HD CATH AND WE PUT PRESSURE ON THE SITE, INFORMED MAGDALENA YANEZ AND GET AN ORDER OF GELFOAM, ORDER NOTED AND CARRIED OUT
[2020-09-07] MEDS: BLOOD SUGAR DIAGNOSTIC 1 EACH STRIP IN SCH ×4 (06:54→21:38)
[2020-09-07] MEDS: INSULIN REGULAR, HUMAN 100 UNIT/ML 3 ML VIAL SQ PRN ×2 (06:55→12:26)
--- NOTE | 2020-09-07 07:53 | NUR ---
MS/RN Opening note Patient received from night warehouse manager. Continues to bleed from right femoral where dialysis catheter was pulled out. Pressure applied continuously, Dr Aceves at bedside for assessment. Surgicel dressing applied along with pressure dressing, patient instructed to lay still and not remove dressing.
[2020-09-07 08:00] VITALS: BP 152/82
[2020-09-07] MEDS: ASPIRIN EC 81 MG TABLET.DR PO SCH (08:04)
[2020-09-07] MEDS: HYDROCODONE/APAP 5/325MG TABLET PO PRN ×3 (08:04→20:53)
[2020-09-07] MEDS: FUROSEMIDE 40 MG/4 ML VIAL IV SCH (08:05)
[2020-09-07] MEDS: AMLODIPINE BESYLATE 5 MG TABLET PO SCH (08:16)
--- NOTE | 2020-09-07 08:18 | NUR ---
MS/manager content Dr Brenner's SHOE SHANKER at bedside, made aware that HD catheter was removed by patient earlier this morning. Awaiting new orders.
--- NOTE | 2020-09-07 09:00 | NUR ---
MS/RN Medications Morning medications administered as ordered, no difficulty swallowing.
[2020-09-07 12:00] VITALS: BP 150/69
[2020-09-07 16:00] VITALS: BP 151/85
--- NOTE | 2020-09-07 16:08 | NUR ---
MS/RN Dr Nayeli Tyler at bedside for dialysis catheter insertion.
--- NOTE | 2020-09-07 16:45 | NUR ---
MS/RN HD catheter insertion HD catheter inserted in right jugular by Dr Tyler.
--- NOTE | 2020-09-07 17:30 | NUR ---
MS/RN Bleeding HD catheter site Patient noted to be bleeding from HD catheter insertion site. Pressure applied for several minutes and then new pressure dressing placed. Blood pressure stable throughout.
[2020-09-07 17:43] LABS: CALCIUM, SERUM 7.9 mg/dL (8.5-10.1); CREATININE 3.8 mg/dL (0.6-1.3); POTASSIUM 3.8 mmol/L (3.5-5.1)
[2020-09-07 17:51] LABS: BASOPHILS # (AUTO) 0.1 /CMM (0.0-0.2); BASOPHILS % (AUTO) 0.8 % (0.0-2.0); LYMPHOCYTES # (AUTO) 0.6 /CMM (0.8-4.8); LYMPHOCYTES % (AUTO) 5.2 % (20.0-44.0); MEAN CORPUSCULAR HGB CONC 32 g/dl (31.0-36.0); MEAN CORPUSCULAR VOLUME 90 fL (80-96); MONOCYTES # (AUTO) 1.2 /CMM (0.1-1.30); MONOCYTES % (AUTO) 11.4 % (2.0-12.0); NEUTROPHILS # (AUTO) 8.6 /CMM (1.8-8.9); NEUTROPHILS % (AUTO) 80.6 % (43.0-81.0); PLATELET COUNT (AUTO) 322 /CMM (150-450); RED BLOOD CELL COUNT(AUTO) 2.26 MIL/uL (4.5-6.0); WHITE BLOOD COUNT (AUTO) 10.7 K/uL (4.3-11.0)
[2020-09-07 17:54] LABS: HEMATOCRIT 20 % (39-51)
[2020-09-07 17:55] LABS: HEMOGLOBIN 6.5 g/dL (13.5-17.5)
--- NOTE | 2020-09-07 17:57 | NUR ---
MS/RN Critical lab Call received from lab, Hb 6.5, will notify Dr Aceves.
--- NOTE | 2020-09-07 18:10 | NUR ---
MS/RN Orders Order received from Dr Aceves for one unit PRBC for hemiglobin 6.5. Also order given that restraints may be placed if patient continues to play and pull at hemodialysis catheter.
--- NOTE | 2020-09-07 18:46 | NUR ---
MS/ RN CLOSING NOTES PT RESTING IN BED. IN FOWLERS POSITION. PT TURNED AND REPOSITIONED. NO S/S OF DISTRESS OR DISCOMFORT. VITAL SIGNS WITHIN NORMAL LIMITS: BP 152/ 82, PULSE 78, RESP. 20, 97.7 DEGREES, 96% O2 SAT. PT ON 4L NASAL CANNULA. BED ALARM IS ON, CALL LIGHT WITHIN REACH AND BED ON LOWEST POSITION. WILL ENDORSE CONTINUATION OF CARE TO IT DIRECTOR.
[2020-09-07 20:00] VITALS: BP 152/78
[2020-09-07 22:56] LABS: BAND % (MANUAL) 2 % (0.0-5.0); EOSINOPHILS % (MANUAL) 3 % (0-4); LYMPHOCYTES % (MANUAL) 7 % (16-48); MONOCYTES % (MANUAL) 9 % (0-11.0); NEUTROPHILS % (MANUAL) 79 (42-76)
[2020-09-08] VITALS (9 sets, daily range): BP systolic 143–156; BP diastolic 72–115
[2020-09-08] MEDS: IPRATROPIUM NEB FS 0.5 MG/2.5 ML AMPUL.NEB NEB SCH ×4 (01:25→19:38)
[2020-09-08] MEDS: hydrALAZINE HCL 25 MG TABLET PO SCH ×3 (05:00→20:50)
[2020-09-08 06:14] LABS: CALCIUM, SERUM 8.2 mg/dL (8.5-10.1); CREATININE 3.2 mg/dL (0.6-1.3); POTASSIUM 3.9 mmol/L (3.5-5.1)
[2020-09-08 06:15] LABS: BASOPHILS # (AUTO) 0.1 /CMM (0.0-0.2); BASOPHILS % (AUTO) 0.8 % (0.0-2.0); EOSINOPHILS % (AUTO) 1.8 % (0.0-6.0); HEMATOCRIT 23 % (39-51); HEMOGLOBIN 7.6 g/dL (13.5-17.5); LYMPHOCYTES # (AUTO) 0.8 /CMM (0.8-4.8); LYMPHOCYTES % (AUTO) 5.9 % (20.0-44.0); MEAN CORPUSCULAR HGB CONC 33 g/dl (31.0-36.0); MEAN CORPUSCULAR VOLUME 89 fL (80-96); MONOCYTES # (AUTO) 1.6 /CMM (0.1-1.30); NEUTROPHILS # (AUTO) 10.7 /CMM (1.8-8.9); NEUTROPHILS % (AUTO) 79.5 % (43.0-81.0); PLATELET COUNT (AUTO) 392 /CMM (150-450); RED BLOOD CELL COUNT(AUTO) 2.59 MIL/uL (4.5-6.0); WHITE BLOOD COUNT (AUTO) 13.4 K/uL (4.3-11.0)
[2020-09-08] MEDS: BLOOD SUGAR DIAGNOSTIC 1 EACH STRIP IN SCH ×4 (07:30→21:37)
--- NOTE | 2020-09-08 07:32 | NUR ---
RN NOTES S/P 1 unit PRBC BT, no ASE noted. Medicated for pain noted effective. Nursing needs attended. Endorsed.
--- NOTE | 2020-09-08 08:00 | NUR ---
received pt. in am alert and oriented x2-3.instructional technology instructor light freq.seems a little.ij drsg. to rt. neck dry and intact.
[2020-09-08] MEDS: ASPIRIN EC 81 MG TABLET.DR PO SCH (09:12)
[2020-09-08] MEDS: FUROSEMIDE 40 MG/4 ML VIAL IV SCH (09:12)
[2020-09-08] MEDS: AMLODIPINE BESYLATE 5 MG TABLET PO SCH (09:12)
--- NOTE | 2020-09-08 13:30 | NUR ---
medicated for joint pain with norco.
[2020-09-08] MEDS: HYDROCODONE/APAP 5/325MG TABLET PO PRN ×2 (13:53→21:52)
--- NOTE | 2020-09-08 18:53 | NUR ---
being dialyzed now.
--- NOTE | 2020-09-08 19:55 | NUR ---
FLOTATION TENDER HELPER OPENING NOTES RECEIVED PATIENT IN BED ALERT AND ORIENTED X 2-3. VERBALLY RESPONSIVE AND ABLE TO FOLLOW DIRECTIONS. BREATHING REGULAR AND UNLABORED ON OXYGEN AT 4L/MIN VIA NASAL CANNULA. LEFT UPPER ARM MIDLINE INTACT AND PATENT, FLUSHING WELL. RIGHT INTRAJUGULAR HD CATH INTACT, BEING DIALYZED AT THIS TIME WITH NO ADVERSE REACTIONS NOTED. MAINTAINED ON CARDIAC MONITORING WITH NSR WITH 1st DEGREE AV BLOCK AT 88bpm. DENIES PAIN/DISCOMFORT AT THIS TIME. BED LOW AND LOCKED ON SEMI FOWLERS POSITION. CALL LIGHT IN REACH. WILL CONTINUE TO MONITOR.
--- NOTE | 2020-09-08 21:00 | NUR ---
SUPPLIER DEVELOPMENT MANAGER NOTES S/P HEMODIALYSIS 2500MLS OUTPUT.
[2020-09-08] MEDS: INSULIN REGULAR, HUMAN 100 UNIT/ML 3 ML VIAL SQ PRN (21:37)
[2020-09-09] VITALS: BP_SYST 132; BP_SYST 134; BP_DIAS 66; BP_DIAS 77
[2020-09-09] MEDS: IPRATROPIUM NEB FS 0.5 MG/2.5 ML AMPUL.NEB NEB SCH ×4 (01:58→19:59)
[2020-09-09] MEDS: HYDROCODONE/APAP 5/325MG TABLET PO PRN ×2 (02:38→20:12)
[2020-09-09 04:00] VITALS: BP 129/70
[2020-09-09] MEDS: hydrALAZINE HCL 25 MG TABLET PO SCH ×3 (04:46→21:03)
--- NOTE | 2020-09-09 06:40 | NUR ---
MAINTENANCE SHOP TECHNICIAN CLOSING NOTES PATIENT IN BED ALERT AND ORIENTED X 2 CONFUSED. AFEBRILE WITH NO S/S OF DISTRESS OBSERVED. LEFT UPPER ARM MIDLINE INTACT AND PATENT, FLUSHING WELL. RIGHT INTRAJUGULAR HD CATH INTACT WITH NO ACTIVE BLEEDING NOTED. MAINTAINED ON CARDIAC MONITORING WITH NSR. NO S/S OF PAIN/DISCOMFORT SEEN AT THIS TIME. BED LOW AND LOCKED ON SEMI FOWLERS POSITION. CALL LIGHT IN REACH. WILL ENDORSE TO MORNING SHIFT FOR DREW.
[2020-09-09] MEDS: BLOOD SUGAR DIAGNOSTIC 1 EACH STRIP IN SCH ×4 (06:52→22:15)
[2020-09-09] MEDS: INSULIN REGULAR, HUMAN 100 UNIT/ML 3 ML VIAL SQ PRN ×3 (06:53→17:56)
[2020-09-09 07:01] LABS: BASOPHILS # (AUTO) 0.2 /CMM (0.0-0.2); BASOPHILS % (AUTO) 0.9 % (0.0-2.0); EOSINOPHILS % (AUTO) 2.4 % (0.0-6.0); HEMATOCRIT 22 % (39-51); HEMOGLOBIN 7.1 g/dL (13.5-17.5); LYMPHOCYTES # (AUTO) 1.5 /CMM (0.8-4.8); LYMPHOCYTES % (AUTO) 9.1 % (20.0-44.0); MEAN CORPUSCULAR HGB CONC 33 g/dl (31.0-36.0); MEAN CORPUSCULAR VOLUME 90 fL (80-96); MONOCYTES # (AUTO) 2.3 /CMM (0.1-1.30); NEUTROPHILS # (AUTO) 12.2 /CMM (1.8-8.9); NEUTROPHILS % (AUTO) 73.6 % (43.0-81.0); PLATELET COUNT (AUTO) 365 /CMM (150-450); RED BLOOD CELL COUNT(AUTO) 2.43 MIL/uL (4.5-6.0); WHITE BLOOD COUNT (AUTO) 16.6 K/uL (4.3-11.0)
[2020-09-09 07:27] LABS: CALCIUM, SERUM 8.7 mg/dL (8.5-10.1); CREATININE 2.1 mg/dL (0.6-1.3); POTASSIUM 4.3 mmol/L (3.5-5.1)
--- NOTE | 2020-09-09 07:39 | NUR ---
ADOBE ARCHITECT OPENING NOTES PT IN BED SLEEPING, A/O X3 ABLE TO MAKE NEEDS KNOWN. ON 02 VIA N/C AT 4LPM, TOLERATING WELL WITH NO SOB NOTED. EXTERNAL MONITOR SHOWS SR WITH ARRHYTHMIA AND 1ST DEGREE AV BLOCK IN HR AT THE 70'S. NO C/O CARDIAC DISTRESS VOICED AT THIS TIME. IV MICHAEL MIDLINE G#18 INTACT AND PATENT. HD CATH ON RIGHT IJ IS C/D/I. SAFETY MEASURES IN PLACE: BED IN LOWEST LOCKED POSITION WITH SIDE RAILS UP X2, BED ALARM ON AND CALL LIGHT W/IN EASY REACH OF PT. WILL CONTINUE TO MONITOR.
[2020-09-09 08:00] VITALS: BP 120/64
[2020-09-09] MEDS: ASPIRIN EC 81 MG TABLET.DR PO SCH (09:10)
[2020-09-09] MEDS: FUROSEMIDE 40 MG/4 ML VIAL IV SCH (09:10)
[2020-09-09] MEDS: AMLODIPINE BESYLATE 5 MG TABLET PO SCH (09:10)
--- NOTE | 2020-09-09 13:36 | NUR ---
RN NOTES PATIENT REFUSED BP TO BE TAKEN X2 AND REFUSED HYDRALAZINE. PT IS STABLE.
[2020-09-09 16:00] VITALS: BP 145/72
--- NOTE | 2020-09-09 17:59 | NUR ---
RN NOTES PATIENT ON HEMODIALYSIS STARTED VBY HD RN VIA RIGHT IJ HD CATHETER. WILL MONITOR FOR ANY ADVERSE REACTIONS NOTED.
--- NOTE | 2020-09-09 19:30 | NUR ---
SENIOR GAME DEVELOPER CLOSING NOTES PT IN BED AWAKE, A/O X3 WITH EPISODES OF CONFUSION, ABLE TO MAKE NEEDS KNOWN. ON 02 VIA N/C AT 4LPM, TOLERATING WELL WITH NO SOB NOTED. EXTERNAL MONITOR SHOWS SR WITH ARRHYTHMIA AND 1ST DEGREE AV BLOCK IN HR AT THE 80'S. NO C/O CARDIAC DISTRESS VOICED AT THIS TIME. IV MICHAEL MIDLINE G#18 INTACT AND PATENT. HD CATH ON RIGHT IJ IS C/D/I. SAFETY MEASURES IN PLACE: BED IN LOWEST LOCKED POSITION WITH SIDE RAILS UP X2, BED ALARM ON AND CALL LIGHT W/IN EASY REACH OF PT. WILL ENDORSE PLAN OF CARE TO ONCOMING NURSE.
--- NOTE | 2020-09-09 19:30 | NUR ---
MS RN OPENING NOTE: RECEIVED PT FROM DAY SHIFT NURSE. A/O X3 ABLE TO MAKE NEEDS KNOWN. ON 02 VIA N/C AT 4LPM, TOLERATING WELL WITH NO SOB NOTED. NO C/O CARDIAC DISTRESS VOICED AT THIS TIME. IV MICHAEL MIDLINE G#18 INTACT AND PATENT. HD CATH ON RIGHT IJ IS C/D/I. SAFETY MEASURES IN PLACE: BED IN LOWEST LOCKED POSITION WITH SIDE RAILS UP X2, BED ALARM ON AND CALL LIGHT W/IN EASY REACH OF PT. WILL CONTINUE TO MONITOR.
[2020-09-09 20:00] VITALS: BP 137/73
--- NOTE | 2020-09-09 20:14 | NUR ---
MS RN NOTE: PT. C/O OF 5/10 PAIN IN SCROTUM. ADMINISTERED NORCO PO PRN ORDERED. WILL CONTINUE TO MONITOR.
[2020-09-09] MEDS: ZOLPIDEM TARTRATE 5 MG TABLET PO PRN (21:44)
[2020-09-10] VITALS: BP 130/72
[2020-09-10] MEDS: IPRATROPIUM NEB FS 0.5 MG/2.5 ML AMPUL.NEB NEB SCH ×4 (01:37→19:56)
[2020-09-10 04:00] VITALS: BP 134/69
[2020-09-10] MEDS: hydrALAZINE HCL 25 MG TABLET PO SCH ×3 (04:57→20:56)
[2020-09-10] MEDS: BLOOD SUGAR DIAGNOSTIC 1 EACH STRIP IN SCH ×4 (06:30→22:00)
[2020-09-10] MEDS: INSULIN REGULAR, HUMAN 100 UNIT/ML 3 ML VIAL SQ PRN (06:34)
[2020-09-10 08:00] VITALS: BP 120/70
[2020-09-10] MEDS: ASPIRIN EC 81 MG TABLET.DR PO SCH (09:44)
[2020-09-10] MEDS: FUROSEMIDE 40 MG/4 ML VIAL IV SCH (09:44)
[2020-09-10] MEDS: AMLODIPINE BESYLATE 5 MG TABLET PO SCH (09:45)
[2020-09-10] MEDS: HYDROCODONE/APAP 5/325MG TABLET PO PRN ×2 (11:04→19:55)
[2020-09-10 12:00] VITALS: BP 137/75
[2020-09-10] MEDS: APIXABAN 5 MG TABLET PO SCH ×2 (13:48→17:00)
--- NOTE | 2020-09-10 13:49 | NUR ---
ATOMIC WELDER NOTES CONFIRMED WITH DR. JUNI SOLIS TO GIVE ELQUIS DESPITE LOW H/H LEVELS. NOTED AND CARRIED OUT.
[2020-09-10 16:00] VITALS: BP 124/73
[2020-09-10 20:00] VITALS: BP 144/74
[2020-09-10] MEDS: ZOLPIDEM TARTRATE 5 MG TABLET PO PRN (21:11)
--- NOTE | 2020-09-10 21:31 | NUR ---
FIELD SERVICES ANALYST NOTES PATIENT IN BED RESTING. NO ACUTE CHANGES NOTED DURING SHIFT. ALL DUE MEDICATIONS ADMINISTERED. ALL NEEDS MET. WILL ENDORSE CARE TO PM SHIFT.
[2020-09-11] VITALS: BP 138/81
[2020-09-11] MEDS: IPRATROPIUM NEB FS 0.5 MG/2.5 ML AMPUL.NEB NEB SCH ×4 (02:12→19:50)
--- NOTE | 2020-09-11 04:13 | NUR ---
TELERN SLEPT WELL, CONTINUED MONITORING. CLOSELY WATCHED.
[2020-09-11] MEDS: hydrALAZINE HCL 25 MG TABLET PO SCH ×3 (05:51→22:32)
[2020-09-11] MEDS: BLOOD SUGAR DIAGNOSTIC 1 EACH STRIP IN SCH ×4 (05:52→22:32)
[2020-09-11 06:09] LABS: BASOPHILS # (AUTO) 0.1 /CMM (0.0-0.2); BASOPHILS % (AUTO) 0.6 % (0.0-2.0); EOSINOPHILS % (AUTO) 3.7 % (0.0-6.0); HEMATOCRIT 22 % (39-51); HEMOGLOBIN 7.2 g/dL (13.5-17.5); LYMPHOCYTES # (AUTO) 0.8 /CMM (0.8-4.8); MEAN CORPUSCULAR HGB CONC 32 g/dl (31.0-36.0); MEAN CORPUSCULAR VOLUME 92 fL (80-96); MONOCYTES # (AUTO) 1.5 /CMM (0.1-1.30); MONOCYTES % (AUTO) 11.5 % (2.0-12.0); NEUTROPHILS # (AUTO) 10.4 /CMM (1.8-8.9); NEUTROPHILS % (AUTO) 78.2 % (43.0-81.0); PLATELET COUNT (AUTO) 355 /CMM (150-450); RED BLOOD CELL COUNT(AUTO) 2.41 MIL/uL (4.5-6.0); WHITE BLOOD COUNT (AUTO) 13.4 K/uL (4.3-11.0)
[2020-09-11 06:24] LABS: CALCIUM, SERUM 8.5 mg/dL (8.5-10.1); CREATININE 2.2 mg/dL (0.6-1.3); POTASSIUM 4.4 mmol/L (3.5-5.1)
--- NOTE | 2020-09-11 07:31 | NUR ---
CRIME DATA SPECIALIST OPENING NOTES PT RECEIVED AWAKE IN BED IN NO ACUTE SIGNS OF DISTRESS. HOB ELEVATED. A/O X3. ABLE TO MAKE NEEDS KNOWN, DENIES PAIN OR ANY DISCOMFORTS AT THIS TIME. ON 02 VIA N/C AT 4LPM, TOLERATING WELL WITH NO SOB NOTED. EXTERNAL MONITOR SHOWS SR WITH 1ST DEGREE AV BLOCK AND HR B/W 60-80, NO C/O CARDIAC DISTRESS VOICED AT THIS TIME. MICHAEL MIDLINE G#18 DISLODGED FROM PERVIOUS SHIFT, WILL TRY TO INSERT ONE TODAY. HD CATH ON RIGHT IJ IN PLACE WITH DRESSING C/D/I. SAFETY MEASURES IN PLACE: BED IN LOWEST LOCKED POSITION WITH SIDE RAILS UP X2, BED ALARM ON AND CALL LIGHT W/IN EASY REACH OF PT. WILL CONTINUE TO MONITOR.
[2020-09-11 08:00] VITALS: BP 143/75
[2020-09-11] MEDS: FUROSEMIDE 40 MG/4 ML VIAL IV SCH (08:37)
[2020-09-11] MEDS: ASPIRIN EC 81 MG TABLET.DR PO SCH (08:37)
[2020-09-11] MEDS: AMLODIPINE BESYLATE 5 MG TABLET PO SCH (08:38)
[2020-09-11] MEDS: APIXABAN 5 MG TABLET PO SCH ×2 (08:39→16:43)
--- NOTE | 2020-09-11 09:53 | NUR ---
RN NOTES RADHA PERES INSERTED MIDLINE G#18 TO RIGHT UPPER ARM.
[2020-09-11] MEDS: INSULIN REGULAR, HUMAN 100 UNIT/ML 3 ML VIAL SQ PRN ×2 (11:44→17:19)
[2020-09-11 12:00] VITALS: BP 122/67
--- NOTE | 2020-09-11 12:12 | NUR ---
RN NOTES HD JUST STARTED BY DIALYSIS NURSE ADIS VIA RIGHT IJ. PRE HD V/S CHECKED: BP 122/66, P 66, R 18 AND T 98F. WILL CONTINUE TO MONITOR ANY ADVERSE REACTIONS.
[2020-09-11 13:06] VITALS: BP 126/55
--- NOTE | 2020-09-11 13:06 | NUR ---
RN NOTES PT'S HEMODIALYSIS JUST FINISHED AND TOLERATED PROCEDURE. OUTPUT WAS 1000L. DIALYSIS NURSE ADIS APPLIED DRESSING ON PT'S RIGHT IJ HD CATHETER NO ACTIVE BLEEDING NOTED AT SITE. POST HD V/S CHECKED: BP 126/55, P 67, R 18 AND T 98.2F. WILL CONTINUE TO MONITOR
[2020-09-11] MEDS: HYDROCODONE/APAP 5/325MG TABLET PO PRN (15:40)
[2020-09-11 16:00] VITALS: BP 131/74
--- NOTE | 2020-09-11 18:49 | NUR ---
CLINICAL ASST CLOSING NOTES PT ASLEEP AT THIS TIME. EASILY AWAKENS. HOB ELEVATED. A/O X3. ABLE TO MAKE NEEDS KNOWN. ON 02 VIA N/C AT 4LPM, TOLERATING WELL WITH NO SOB NOTED DURING SHIFT. EXTERNAL MONITOR SHOWS SR WITH 1ST DEGREE AV BLOCK AND HR ON 70'S, NO C/O CARDIAC DISTRESS VOICED DURING SHIFT. ELLY MIDLINE G#18 INTACT, PATENT AND FLUSHES WELL. HD CATH ON RIGHT IJ IN PLACE WITH DRESSING C/D/I. ALL NEEDS AND CARE ATTENDED WELL. SAFETY MEASURES KEPT IN PLACE: BED IN LOWEST LOCKED POSITION WITH SIDE RAILS UP X2, BED ALARM ON AND CALL LIGHT W/IN EASY REACH OF PT. WILL ENDORSE TO RESIDENTIAL LEASING AGENT NURSE FOR DREW
[2020-09-11 20:00] VITALS: BP 132/64
[2020-09-12] VITALS: BP 132/69
[2020-09-12] MEDS: IPRATROPIUM NEB FS 0.5 MG/2.5 ML AMPUL.NEB NEB SCH ×4 (01:32→20:31)
[2020-09-12] MEDS: hydrALAZINE HCL 25 MG TABLET PO SCH ×3 (06:16→23:04)
[2020-09-12] MEDS: BLOOD SUGAR DIAGNOSTIC 1 EACH STRIP IN SCH ×4 (06:21→23:03)
[2020-09-12 06:35] LABS: BASOPHILS # (AUTO) 0.1 /CMM (0.0-0.2); BASOPHILS % (AUTO) 0.8 % (0.0-2.0); EOSINOPHILS % (AUTO) 4.5 % (0.0-6.0); HEMATOCRIT 22 % (39-51); LYMPHOCYTES # (AUTO) 0.8 /CMM (0.8-4.8); LYMPHOCYTES % (AUTO) 5.6 % (20.0-44.0); MEAN CORPUSCULAR HGB CONC 32 g/dl (31.0-36.0); MEAN CORPUSCULAR VOLUME 93 fL (80-96); MONOCYTES # (AUTO) 1.4 /CMM (0.1-1.30); MONOCYTES % (AUTO) 9.8 % (2.0-12.0); NEUTROPHILS # (AUTO) 11.7 /CMM (1.8-8.9); NEUTROPHILS % (AUTO) 79.3 % (43.0-81.0); PLATELET COUNT (AUTO) 372 /CMM (150-450); RED BLOOD CELL COUNT(AUTO) 2.35 MIL/uL (4.5-6.0); WHITE BLOOD COUNT (AUTO) 14.7 K/uL (4.3-11.0)
[2020-09-12 06:39] LABS: CALCIUM, SERUM 8.6 mg/dL (8.5-10.1); CREATININE 2.3 mg/dL (0.6-1.3); POTASSIUM 4.2 mmol/L (3.5-5.1)
--- NOTE | 2020-09-12 07:30 | NUR ---
received pt. in am.vs stable.residential remodeling subcontractor light freq.confused.side rails up call salazar within reach.oriented x2-3.
[2020-09-12 08:00] VITALS: BP 136/79
[2020-09-12] MEDS: FUROSEMIDE 40 MG/4 ML VIAL IV SCH (09:26)
[2020-09-12] MEDS: ASPIRIN EC 81 MG TABLET.DR PO SCH (09:27)
[2020-09-12] MEDS: AMLODIPINE BESYLATE 5 MG TABLET PO SCH (09:27)
--- NOTE | 2020-09-12 10:30 | NUR ---
no change in status.mother additionally being texted or called by ptDena carrizales.cont. to take nc off then oxygen goes down a little.
[2020-09-12 12:00] VITALS: BP 116/57
[2020-09-12] MEDS: APIXABAN 5 MG TABLET PO SCH ×2 (14:14→18:56)
[2020-09-12 16:00] VITALS: BP 127/76
--- NOTE | 2020-09-12 17:57 | NUR ---
no change in status.
--- NOTE | 2020-09-12 19:30 | NUR ---
MS/TELE/RN RECEIVED PATIENT ON BED AWAKE, ALERT, ORIENTED, COMFORTABLE, NO C/O PAIN, NO DISTRESS NOTED, CALL LIGHT IN REACH, WILLL MONITOR.
[2020-09-12 20:00] VITALS: BP 137/74
[2020-09-12] MEDS: ZOLPIDEM TARTRATE 5 MG TABLET PO PRN (23:04)
[2020-09-13] VITALS: BP 126/66
[2020-09-13] MEDS: IPRATROPIUM NEB FS 0.5 MG/2.5 ML AMPUL.NEB NEB SCH ×4 (00:38→20:10)
[2020-09-13] MEDS: HYDROCODONE/APAP 5/325MG TABLET PO PRN ×2 (01:15→13:05)
[2020-09-13 04:00] VITALS: BP 120/76
[2020-09-13] MEDS: hydrALAZINE HCL 25 MG TABLET PO SCH ×4 (06:51→21:34)
[2020-09-13] MEDS: BLOOD SUGAR DIAGNOSTIC 1 EACH STRIP IN SCH ×4 (06:53→22:00)
--- NOTE | 2020-09-13 07:30 | NUR ---
MS/RN Opening note Patient received from subscription crew leader. A/O X1-2, with extended periods of confusion. Vital signs recorded, noted to be hypertensive, will administer morning medications. Midline to right upper arm noted, flushing well with normal saline, no signs of any infiltration. Hemodialysis catheter to right jugular, dressing dry and intact. Safety measures in place, bed in low setting, side rails X3 in upright position. Call light within reach, will continue to monitor and ensure safety.
--- NOTE | 2020-09-13 07:33 | NUR ---
MS/RN PATIENT APPEAR SLEEPING, APPEAR COMFORTABLE NO DISTRESSS NOTED, CALL LIGHT IN REACH. ALL NEEDS ATTENDED AT THIS TIME, ENDORSED.
[2020-09-13 08:00] VITALS: BP 159/81
--- NOTE | 2020-09-13 09:00 | NUR ---
MS/RN Medications Evening medications administered as ordered.
[2020-09-13] MEDS: ASPIRIN EC 81 MG TABLET.DR PO SCH (09:08)
[2020-09-13] MEDS: AMLODIPINE BESYLATE 5 MG TABLET PO SCH (09:09)
[2020-09-13] MEDS: FUROSEMIDE 40 MG/4 ML VIAL IV SCH (09:10)
[2020-09-13] MEDS: APIXABAN 5 MG TABLET PO SCH ×3 (09:10→17:12)
--- NOTE | 2020-09-13 10:30 | NUR ---
MS/RN S/B Dr Stanley Seen by MD - labs ordered for tomorrow.
[2020-09-13] MEDS: METOPROLOL TARTRATE 25 MG TABLET PO SCH ×3 (10:59→21:32)
[2020-09-13 12:00] VITALS: BP 151/81
--- NOTE | 2020-09-13 12:00 | NUR ---
MS/RN Blood sugar Blood sugar at noon 119, no coveraged needed at this time.
--- NOTE | 2020-09-13 15:00 | NUR ---
MS/RN S/B Dr Brenner Seen by Dr Brenner - follow up urine studies and serial labs. Avoid nephrotoxin drugs.
[2020-09-13 16:00] VITALS: BP 136/51
--- NOTE | 2020-09-13 17:36 | NUR ---
MS/RN Medications Evening medications administered as ordered.
--- NOTE | 2020-09-13 19:27 | NUR ---
RN/ MS END NOTE PT REMAINS STABLE CONDITION. PT REFUSED EVENING MEDICATIONS. DIRECTOR SOCIAL MADE AWARE AND WILL ATTEMPT TO ADMINISTER THIS EVENING. WILL CONTINUE PLAN OF CARE AND ENDORSED TO DIRECTOR SOCIAL.
[2020-09-13 20:00] VITALS: BP 136/53
--- NOTE | 2020-09-13 20:51 | NUR ---
PARTS COUNTER SPECIALIST OPENING NOTES PT IN BED AWAKE, A/O X3; ABLE TO MAKE NEEDS KNOWN. ON 02 VIA N/C AT 3LPM, TOLERATING WELL WITH NO SOB NOTED. EXTERNAL MONITOR SHOWS SINUS DUANE WITH ARRHYTHMIA AND HR AT 54. NO C/O CARDIAC DISTRESS VOICED AT THIS TIME. PATIENT DENIES PAIN ANS IS COMFORTABLE AT THIS TIME. IV ELLY MIDLINE INTACT AND PATENT. HD CATH ON RIGHT IJ IS C/D/I. SAFETY MEASURES IN PLACE: BED IN LOWEST LOCKED POSITION WITH SIDE RAILS UP X2, BED ALARM ON AND CALL LIGHT W/IN EASY REACH OF PT. WILL CONTINUE TO MONITOR.
[2020-09-14] VITALS: BP 135/66
[2020-09-14] MEDS: IPRATROPIUM NEB FS 0.5 MG/2.5 ML AMPUL.NEB NEB SCH ×4 (00:36→20:08)
--- NOTE | 2020-09-14 01:45 | NUR ---
RN NOTES PULLED OUT MEDICATIONS HYDRALAZINE AND METOPROLOL DUE AT 2100 FROM MED DISPENSE. PATIENT REFUSED. OPENED MEDICATION AND WASTED IN PROPER MEDICATION WASTE BIN; WITNESSED BY ABNER GARCIA.
[2020-09-14 04:00] VITALS: BP 142/75
[2020-09-14] MEDS: hydrALAZINE HCL 25 MG TABLET PO SCH ×3 (05:45→21:15)
--- NOTE | 2020-09-14 06:44 | NUR ---
COMPONENT TECHNICIAN CLOSING NOTES PT IN BED SLEEPING, A/O X3; WAKES UP TO NAME; ABLE TO MAKE NEEDS KNOWN. ON 02 VIA N/C AT 3LPM, TOLERATING WELL WITH NO SOB NOTED. EXTERNAL MONITOR READS NSR WITH ARRHYTHMIA AND AV HEART BLOCK; AND HR AT 70'S. NO C/O CARDIAC DISTRESS VOICED AT THIS TIME. IV ELLY MIDLINE INTACT AND PATENT. HD CATH ON RIGHT IJ IS C/D/I. SAFETY MEASURES IN PLACE: BED IN LOWEST LOCKED POSITION WITH SIDE RAILS UP X2, BED ALARM ON, AND CALL LIGHT W/IN EASY REACH OF PT. WILL ENDORSE DREW TO ONCOMING NURSE.
[2020-09-14 06:47] LABS: BASOPHILS # (AUTO) 0.1 /CMM (0.0-0.2); BASOPHILS % (AUTO) 0.9 % (0.0-2.0); EOSINOPHILS % (AUTO) 3.8 % (0.0-6.0); HEMATOCRIT 23 % (39-51); HEMOGLOBIN 7.1 g/dL (13.5-17.5); LYMPHOCYTES # (AUTO) 0.9 /CMM (0.8-4.8); LYMPHOCYTES % (AUTO) 6.7 % (20.0-44.0); MEAN CORPUSCULAR HGB CONC 31 g/dl (31.0-36.0); MEAN CORPUSCULAR VOLUME 96 fL (80-96); MONOCYTES # (AUTO) 1.3 /CMM (0.1-1.30); MONOCYTES % (AUTO) 10.2 % (2.0-12.0); NEUTROPHILS # (AUTO) 10.2 /CMM (1.8-8.9); NEUTROPHILS % (AUTO) 78.4 % (43.0-81.0); PLATELET COUNT (AUTO) 369 /CMM (150-450); RED BLOOD CELL COUNT(AUTO) 2.41 MIL/uL (4.5-6.0)
--- NOTE | 2020-09-14 07:23 | NUR ---
ms/ rn opening shift PT RECEIVED FROM PRESSURE WASHER. PATIENT LAYING IN BED. NO SIGNS OF DISTRESS OR DISCOMFORT. PT A/O X4. ELLY MIDLINE FLUSHING WELL. PATENT, NO INFILTRATION. WILL CONTINUE PLAN OF CARE.
[2020-09-14 08:00] VITALS: BP 150/74
[2020-09-14] MEDS: BLOOD SUGAR DIAGNOSTIC 1 EACH STRIP IN SCH ×4 (08:26→21:57)
--- NOTE | 2020-09-14 08:40 | NUR ---
MS/RN S/B Dr Stanley Seen by Dr Stanley - await placement as per [employer] insurance.
[2020-09-14] MEDS: FUROSEMIDE 40 MG/4 ML VIAL IV SCH (08:50)
[2020-09-14] MEDS: ASPIRIN EC 81 MG TABLET.DR PO SCH (08:51)
[2020-09-14] MEDS: AMLODIPINE BESYLATE 5 MG TABLET PO SCH (08:51)
[2020-09-14] MEDS: APIXABAN 5 MG TABLET PO SCH ×2 (08:54→16:53)
[2020-09-14] MEDS: HYDROCODONE/APAP 5/325MG TABLET PO PRN ×2 (08:55→14:01)
[2020-09-14] MEDS: METOPROLOL TARTRATE 25 MG TABLET PO SCH ×2 (08:59→21:15)
--- NOTE | 2020-09-14 09:00 | NUR ---
MS/RN Medications Morning medications administered as ordered.
--- NOTE | 2020-09-14 10:48 | NUR ---
MS/RN S/B Dr Bunn Seen by Dr Bunn - continue with eliquis BID and hypertensive medications (norvasc, hydralazine, metoprolol)
[2020-09-14] MEDS: INSULIN REGULAR, HUMAN 100 UNIT/ML 3 ML VIAL SQ PRN (11:29)
--- NOTE | 2020-09-14 14:58 | NUR ---
MS/RN Physical therapy Seen by physical therapy - able to ambulate 25ft using walker X2.
[2020-09-14 16:00] VITALS: BP 136/66
--- NOTE | 2020-09-14 18:17 | NUR ---
MS/RN End note Patient remains in stable condition, continues to wait for placement which will be arranged by insurance as patient is a [employer] member. Needs frequent reminders to turn and reposition, but is able to do this with minimal assist. All questions and concerns addressed, will endorse to public works director.
--- NOTE | 2020-09-14 19:42 | NUR ---
LICENSED INVESTMENT SALES ASSISTANT NOTES PATIENT IN BED, AWAKE, ALERT AND ORIENTED X 3. BREATHING EVEN AND UNLABORED ON NC 3. SHOWS NO SIGNS OF ACUTE RESPIRATORY DISTRESS, NO ACUTE PAIN. TELE MONITOR SB-SR. ELLY MIDLINE AND RIJ HD CATH INTACT AND IN PLACE. SHOWS NO SIGNS OF INFILTRATION, NO REDNESS. SAFETY PRECAUTIONS IN PLACE. BED IN LOWEST POSITION, LOCKED, AND CALL LIGHT KEPT WITHIN REACH. WILL CONTINUE TO MONITOR.
[2020-09-14 20:00] VITALS: BP 127/56
[2020-09-14] MEDS: ZOLPIDEM TARTRATE 5 MG TABLET PO PRN (23:30)
[2020-09-15] VITALS: BP 123/65
[2020-09-15] MEDS: IPRATROPIUM NEB FS 0.5 MG/2.5 ML AMPUL.NEB NEB SCH ×4 (01:35→19:20)
[2020-09-15] MEDS: HYDROCODONE/APAP 5/325MG TABLET PO PRN ×2 (02:30→22:30)
[2020-09-15] MEDS: hydrALAZINE HCL 25 MG TABLET PO SCH ×3 (05:00→22:31)
[2020-09-15 06:24] LABS: BASOPHILS # (AUTO) 0.1 /CMM (0.0-0.2); BASOPHILS % (AUTO) 0.7 % (0.0-2.0); EOSINOPHILS % (AUTO) 3.7 % (0.0-6.0); HEMATOCRIT 24 % (39-51); HEMOGLOBIN 7.2 g/dL (13.5-17.5); LYMPHOCYTES # (AUTO) 0.7 /CMM (0.8-4.8); LYMPHOCYTES % (AUTO) 5.4 % (20.0-44.0); MEAN CORPUSCULAR HGB CONC 31 g/dl (31.0-36.0); MEAN CORPUSCULAR VOLUME 97 fL (80-96); MONOCYTES % (AUTO) 8.4 % (2.0-12.0); NEUTROPHILS # (AUTO) 9.8 /CMM (1.8-8.9); NEUTROPHILS % (AUTO) 81.8 % (43.0-81.0); PLATELET COUNT (AUTO) 377 /CMM (150-450); RED BLOOD CELL COUNT(AUTO) 2.44 MIL/uL (4.5-6.0)
[2020-09-15 06:38] LABS: CALCIUM, SERUM 8.8 mg/dL (8.5-10.1); CREATININE 3.2 mg/dL (0.6-1.3); MAGNESIUM 2.5 mg/dL (1.8-2.4); PHOSPHORUS 5.6 mg/dL (2.5-4.9); POTASSIUM 4.8 mmol/L (3.5-5.1)
--- NOTE | 2020-09-15 06:48 | NUR ---
GREEN MARKETING SPECIALIST NOTES PATIENT IN BED, ASLEEP, ALERT AND ORIENTED X 3. BREATHING EVEN AND UNLABORED ON NC 3. SHOWS NO SIGNS OF ACUTE RESPIRATORY DISTRESS, NO ACUTE PAIN. TELE MONITOR SB-SR. ELLY MIDLINE AND RIJ HD CATH INTACT AND IN PLACE. SHOWS NO SIGNS OF INFILTRATION, NO REDNESS. ALL DUE MEDICATIONS GIVEN. ALL NEEDS ATTENDED TO. SAFETY PRECAUTIONS IN PLACE. BED IN LOWEST POSITION, LOCKED, AND CALL LIGHT KEPT WITHIN REACH. WILL ENDORSE TO ONCOMING NURSE.
[2020-09-15] MEDS: BLOOD SUGAR DIAGNOSTIC 1 EACH STRIP IN SCH ×4 (07:30→22:32)
[2020-09-15 08:15] VITALS: BP 132/74
[2020-09-15] MEDS: METOPROLOL TARTRATE 25 MG TABLET PO SCH (08:31)
[2020-09-15] MEDS: ASPIRIN EC 81 MG TABLET.DR PO SCH (08:31)
[2020-09-15] MEDS: FUROSEMIDE 40 MG/4 ML VIAL IV SCH (08:31)
[2020-09-15] MEDS: AMLODIPINE BESYLATE 5 MG TABLET PO SCH (08:32)
[2020-09-15] MEDS: APIXABAN 5 MG TABLET PO SCH ×2 (08:33→16:40)
--- NOTE | 2020-09-15 09:33 | NUR ---
MS/ RN OPENING NOTES PT RECEIVED. PT ALERT AND ORIENTED X3. PT LAYING IN BED. PT ON 3L NASAL CANNULA. NO COMPLAINTS OF DISTRESS OR DISCOMFORT. PT REFUSED CHEST X RAY. ELLY MIDLINE FLUSHING WELL. PATENT, NO INFILTRATION, NO OCCLUSION. WILL CONTINUE PLAN OF CARE. VITAL SIGNS: 132/ 74, PULSE 66, RESP. 18, TEMP 98, PULSE OX 92%
--- NOTE | 2020-09-15 09:55 | NUR ---
MS/ RN PT REFUSED CHEST XRAY ORDERED BY DR. VARGAS.
--- NOTE | 2020-09-15 10:10 | NUR ---
MS/ RN PATIENT SEEN BY PHYSICAL THERAPIST. AMBULATED SHORT DISTANCE.
--- NOTE | 2020-09-15 10:12 | NUR ---
MS/ RN PATIENT AGREED TO HAVE CHEST XRAY.
--- NOTE | 2020-09-15 10:53 | NUR ---
MS/ RN RHYTHM RANGING FROM 35- 39. NOTIFIED DR. OWEN.
[2020-09-15] MEDS: INSULIN REGULAR, HUMAN 100 UNIT/ML 3 ML VIAL SQ PRN (11:26)
--- NOTE | 2020-09-15 12:54 | NUR ---
referred to [facility], spoke with Minal -[facility] [phone], pending case review Addendum: 09/15/20 at 1255 by JEAN RETANA RN Amended: Links added.
--- NOTE | 2020-09-15 13:45 | NUR ---
Eh Fontaine at [facility] ctr [phone], will be able to accept patient if has a recent Covid-19 negative test result. Stat Covid test requested to lab. Addendum: 09/15/20 at 1612 by JEAN RETANA RN Amended: Links added.
[2020-09-15 16:19] VITALS: BP 119/63
--- NOTE | 2020-09-15 18:55 | NUR ---
Covid-19 negative, spoke with Minal at [facility] c[facility] [phone], patient is accepted and ok to discharge today per MD. Patient is going to [facility] ctr [address] [place] [address] room# 224A, accepting MD- . Spoke with patient- aware and agreed with current SNF placement. Left mesage to patient mother Fátima [phone]. Spoke with warren piano case and bench assembler Juju [phone],she will call back with transportation info. Addendum: 09/15/20 at 1855 by JEAN RETANA RN Amended: Links added.
--- NOTE | 2020-09-15 18:58 | NUR ---
MS/ RN CLOSING NOTES PT LAYING IN BED COMFORTABLY. TALKING ON THE PHONE. NO DISTRESS OR DISCOMFORT. COMPLIANT WITH MEDICATIONS. PT ORDERED FOR DISCHARGE AT SNF. D/C PLANNING/ FORMS INITIATED. PT PLAN OF D/C 09/15/2020 AT 2000. WILL ENDORSE TO DIRECTOR OF COMPLIANCE. WILL CONTINUE PLAN OF CARE.
--- NOTE | 2020-09-15 19:15 | NUR ---
RN NOTES Patient Received. Patient is noted in bed, awake, alert and oriented x4. Breathing even and non labored currently on 3L via NC. No acute distress or shortness of breath noted. Patient is noted with a ELLY midline noted to be patent and intact. Patient is noted with RIJ HD site noted intact with no bleeding noted. Continues on tele monitor noted to be sinus sharlene. Patient to be discharge tonight. Discharge paper completed and signed by day shift. Awaiting ambulance. Safety precautions implemented with bed locked in lowest position. All needs attended to promptly. Will continue plan of care as ordered.
--- NOTE | 2020-09-15 19:56 | NUR ---
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 REPORT GIVEN TO BRADLEY BACA. PATIENT EDUCATED ON DISCHARGE INSTRUCTIONS. PATIENT IS FORGETFUL AND NONE COMPLIANT. TRANSFORATION SCHEDULED FOR 8PM. ENDORSED DISCHARGE TO PM SHIFT.
[2020-09-15 20:00] VITALS: BP 135/72
[2020-09-15] MEDS ORDERED: METOPROLOL TARTRATE 25 MG TABLET PO SCH (21:00)
--- NOTE | 2020-09-15 21:29 | NUR ---
per Juju MOORELeeanne @ [place] [phone], SNF and ambulance has just been approved. She will arrange ambulance for pickler helper tonight. Spoke with Minal at [facility] ctr [phone]- accepted patient for tonight admission. Addendum: 09/15/20 at 2129 by JEAN RETANA RN Amended: Links added.
--- NOTE | 2020-09-15 22:18 | NUR ---
Per Juju BERMUDEZ @ [place] [phone], ambulance [facility] 11-11:30pm [facility] ambulance [phone], Report to be call to [facility] [phone]. Patient aware and agreed with dc plan. Addendum: 09/15/20 at 2218 by JEAN RETANA RN Amended: Links added.
--- NOTE | 2020-09-15 22:30 | NUR ---
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 CALLED [place] [facility] AND SPOKE TO TONY AND THEY WERE ABLE TO SET UP AUTH FOR PATIENT AND THAT THEY ARE ARRANGING FOR [facility] IN AN HOUR OR SO. CONTACTED [facility] AND INFORMED THEM THAT [facility] JUST FINISHED GETTING AUTH AND ARE SETTING UP AMBULANCE [facility]. [facility] TO FAX A LIST OF DOCUMENTS NEEDED FOR TRANSFER. DISCHARGE PAPERWORK PRINTED AND PREPARED.
--- NOTE | 2020-09-15 22:30 | NUR ---
RN NOTES Patient given PRN [place] for increased generalized pain.
[2020-09-15 22:31] VITALS: BP 135/63
--- NOTE | 2020-09-16 | NUR ---
RN NOTES Patient with orders for discharge to [facility] via ambulance. Report given to supervisor wound. All belongings with patient. ELLY midline removed. Pressure applied and covered with gauze and secured with tape. No bleeding noted. Report given to facility, spoke to Dede and informed that patient is in route. Patient is off floor in stable condition.
== END 2020-09-16 01:23 | DRG 208 ==
LOC: ER 21:27 → TRANSITION 08-23 01:38 → ICU 08-24 12:39 → TELE 08-26 15:40
PROVIDERS: ADMIT Nurse Practitioner Acute Care; ATTEND Internal Medicine
PROC: 5A1935Z Respiratory Ventilation, Less than 24 Consecutive Hours (ICD-10-PCS; principal; 2020-08-24)
PROC: 0BH18EZ Insertion of Endotracheal Airway into Trachea, Via Natural or Artificial Opening Endoscopic (ICD-10-PCS; 2020-08-24)
PROC: 05HY33Z Insertion of Infusion Device into Upper Vein, Percutaneous Approach (ICD-10-PCS; 2020-08-26)
PROC: 30233N1 Transfusion of Nonautologous Red Blood Cells into Peripheral Vein, Percutaneous Approach (ICD-10-PCS; 2020-09-08)
PROC: 05H533Z Insertion of Infusion Device into Right Subclavian Vein, Percutaneous Approach (ICD-10-PCS; 2020-09-11)
PROC: B546ZZA Ultrasonography of Right Subclavian Vein, Guidance (ICD-10-PCS; 2020-09-11)
DX: J15.9 Unspecified bacterial pneumonia (principal); J96.22 Acute and chronic respiratory failure with hypercapnia; N17.0 Acute kidney failure with tubular necrosis; I50.31 Acute diastolic (congestive) heart failure; J96.21 Acute and chronic respiratory failure with hypoxia; E44.0 Moderate protein-calorie malnutrition; E87.2 Acidosis; E66.2 Morbid (severe) obesity with alveolar hypoventilation; I13.0 Hypertensive heart and chronic kidney disease with heart failure and stage 1 through stage 4 chronic kidney disease, or unspecified chronic kidney disease; J44.0 Chronic obstructive pulmonary disease with (acute) lower respiratory infection; J44.1 Chronic obstructive pulmonary disease with (acute) exacerbation; F17.210 Nicotine dependence, cigarettes, uncomplicated; N50.89 Other specified disorders of the male genital organs; I48.91 Unspecified atrial fibrillation; I27.81 Cor pulmonale (chronic); D63.8 Anemia in other chronic diseases classified elsewhere; E11.22 Type 2 diabetes mellitus with diabetic chronic kidney disease; N18.9 Chronic kidney disease, unspecified; Z68.36 Body mass index [BMI] 36.0-36.9, adult; E88.09 Other disorders of plasma-protein metabolism, not elsewhere classified; Z79.84 Long term (current) use of oral hypoglycemic drugs; Z20.822 Contact with and (suspected) exposure to COVID-19
CPT/HCPCS: 31720; 36410; 36415; 36600; 71045-TC; 76770-TC; 80048-TC; 80053-TC; 80061-TC; 80076-TC; 80202-TC; 81001; 82570-TC; 82803-TC; 82962-TC; 83605-TC; 83735-TC; 83880; 84100-TC; 84155-TC; 84300-TC; 84443-TC; 84484-TC; 85025-TC; 85652-TC; 85730-TC; 86225; 86235; 86706; 86803; 86850-TC; 87040-TC; 87081-TC; 87086-TC; 87340; 90935-TC; 93307-TC; 93970-TC; 94003-TC; 94760-TC; 94799-TC; 97112-TC; 97116-TC; 97530-TC; A4217; A6253; A6403; C9803; G0378; J0171; J0461; J0692; J1650; J1815; J1940; J2405; J2543; J2704; J3370; J3490; J7030; J7040; J7050; J7060; P9016-BL; U0003